=== PATIENT | female | born 1990 | race African-American/Black ===

== ENCOUNTER 2020-08-28 09:01 | Emergency (ER) | payer MEDICAID, SELFPAY ==
[2020-08-28 09:08] VITALS: BP 136/84; PULSE 92; RESP 20; TEMP 36.9; O2SAT 96; BMI 40.3
[2020-08-28 09:45] LABS: COVID-19 Test Negative (Negative); IDNOW Serial# 08D9AD1C
--- NOTE | 2020-08-28 09:58 | ED_ITS ---
HPI - URI/Sore Throat General Chief Complaint: Upper Respiratory Symptoms Stated Complaint: SORE THROAT Time Seen by Provider: 08/28/20 09:07 History of Present Illness HPI Narrative: Patient complains of sore throat, itchy throat for 2-3 days as well as a mild dry cough, no shortness of breath no fever no body aches no fatigue Related Data Previous Rx's Medication Instructions Recorded cetirizine 10 mg PO DAILY PRN #14 cap 08/28/20 Allergies Allergy/AdvReac Type Severity Reaction Status Date / Time No Known Allergies Allergy Unverified 01/05/20 17:18 Review of Systems Review of Systems: Positive for sore throat and cough Negatives are no fever no chills no dizziness no weakness no fainting no headache no neck pain no chest pain no shortness of breath no abdominal pain no nausea or vomiting no skin rash no dysuria no changes to bowel or bladder Yes a ll other systems are reviewed and are negative PMFSH Past Medical History Source: nursing notes reviewed Medical History (Updated 08/28/20 @ 10:14 by MIMI Lester) No known health problems Social History Social History Advance Directives: No Advance Directives Information Provided: No Patient : No Physical Exam Vital Signs: Vital Signs: Last Vital Signs Temp 98.4 F 08/28/20 09:08 Pulse 92 08/28/20 09:08 Resp 20 08/28/20 09:08 BP 136/84 08/28/20 09:08 Pulse Ox 96 08/28/20 09:08 Body Mass Index 40.3 General appearance is no acute distress The ears have clear canals with normal tympanic membrane The sinuses are nontender The pharynx is clear with no tonsillar exudate or swelling no redness no drooling no trismus, voice is normal Neck is supple without lymphadenopathy Chest is clear to auscultation bilateral Heart no murmur The abdomen soft nontender Skin no rash Course Course Course Narrative: Well-appearing patient with negative strep and COVID testing is discharged MDM - URI/Sore Throat Lab Data Labs: Lab Results 08/28/20 08/28/20 08/28/20 Range/Units 09:15 09:32 09:32 COVID-19 (KATHERINE) Negative (Negative) COVID-19 Clin Com See Note S. pyogenes GrpA CARL Cancelled Negative Discharge Plan Discharge Clinical Impression: Upper respiratory infection Qualifiers: URI type: unspecified viral URI Qualified Code(s): J06.9 - Acute upper respiratory infection, unspecified Patient Disposition: Home, Self-Care Additional Instructions: You may have of mild viral infection or possibly allergies so I wrote a prescription for cetirizine, allergy medicine COVID and rapid strep tests were negative Drink plenty of fluids Return any time if worse Prescriptions: New cetirizine 10 mg capsule 10 mg PO DAILY PRN (Reason: allergy symptoms) Qty: 14 RF: 0
[2020-08-28 10:02] LABS: IDNOW Serial# 08D9AD1C; Strep A Nucleic Acid Negative (Negative)
== END 2020-08-28 10:27 | disposition home or self-care (01) ==
PROVIDERS: Emergency Provider Emergency Medicine
DX: J06.9 Acute upper respiratory infection, unspecified (principal); Z20.822 Contact with and (suspected) exposure to COVID-19; J02.9 Acute pharyngitis, unspecified
CPT/HCPCS: 36415; 87635; 99283

== ENCOUNTER 2021-04-22 09:12 | Outpatient (REF) | payer MEDICAID, SELFPAY ==
[2021-04-22 09:58] LABS: COVID-19 Test Negative (Negative)
== END 2021-04-22 09:13 | disposition home or self-care (01) ==
LOC: HO.LAB 09:12
PROVIDERS: Visit Provider Internal Medicine
DX: Z20.822 Contact with and (suspected) exposure to COVID-19 (principal)
CPT/HCPCS: 36415; 87635; C9803

== ENCOUNTER 2021-04-29 09:23 | Outpatient (REF) | payer MEDICAID, SELFPAY ==
[2021-04-29 11:48] LABS: Binax Now Covid-19 Ag Positive (Negative)
[2021-04-29 11:49] LABS: Binax Internal Control QC Valid
== END 2021-04-29 09:24 | disposition home or self-care (01) ==
LOC: HO.LAB 09:23
PROVIDERS: Visit Provider Internal Medicine
DX: Z20.822 Contact with and (suspected) exposure to COVID-19 (principal)
CPT/HCPCS: 36415; C9803

== ENCOUNTER → 2021-05-16 11:57 | Outpatient (BNVA) | payer MEDICAID, SELFPAY | PROVIDERS: PCP General Practice; Referring Provider General Practice; Visit Provider Physician Assistant Surgical ==

== ENCOUNTER 2021-06-20 14:02 | Outpatient (REF) | payer MEDICAID, SELFPAY ==
--- NOTE | ~2021-06-20 | MM_ITS ---
EXAMINATION: MM SCREENING DIGITAL BREAST TOMOSYNTHESIS, BILATERAL CLINICAL INFORMATION: Screening. Asymptomatic. Family history breast cancer, mother. The lifetime risk of breast cancer based on the Tyrer-Cuzick Model is 27%. COMPARISON: Mammography: 11/18/2018 (baseline) TECHNIQUE: Digital breast tomosynthesis is performed in both the craniocaudal and mediolateral oblique views along with computer-aided detection (CAD). Synthesized 2D images are generated from the tomosynthesis. FINDINGS: There are scattered areas of fibroglandular density (ACR BI-RADS breast composition Category b). There are no significant masses, abnormal calcifications, or other abnormalities. There are 2 low right axillary tail nodes again seen on right MLO view. Neither breast shows architectural abnormality. The skin contours are smooth. No significant changes. MM/MM tomosynthesis screening BI IMPRESSION: No mammographic evidence of malignancy. ASSESSMENT: BI-RADS 2: Benign RECOMMENDATION: 1. Routine annual mammography screening. 2. The lifetime risk of breast cancer based on the Tyrer-Cuzick Model is 27%. Additional annual adjunct screening with breast MRI may be of benefit in women with a risk score of 20% or greater. This patient's information was entered into a reminder system with a target due date for their next mammogram.
== END 2021-06-20 14:03 | disposition home or self-care (01) ==
LOC: HO.MAMMO 14:02
PROVIDERS: PCP General Practice; Visit Provider General Practice
DX: Z12.31 Encounter for screening mammogram for malignant neoplasm of breast (principal)
CPT/HCPCS: 77063; 77067

== ENCOUNTER → 2021-06-21 08:17 | Outpatient (BNVA) | payer MEDICAID, SELFPAY | PROVIDERS: PCP General Practice; Visit Provider Surgery ==

== ENCOUNTER → 2021-06-28 14:53 | Outpatient (REF) | payer MEDICAID, SELFPAY ==
--- NOTE | ~2021-06-28 | XR_ITS ---
EXAMINATION: XR CHEST CLINICAL INFORMATION: Moderate to severe obesity due to excess calories. COMPARISON: None TECHNIQUE: 2 views of the chest were obtained. FINDINGS: No significant abnormality is noted involving the heart, lungs, mediastinum, bony thorax or soft tissues. XR/XR chest 2V IMPRESSION: Unremarkable chest examination.
--- NOTE | 2021-06-28 15:08 | ECG_ITS ---
Test Reason : E66.01 Blood Pressure : / mmHG Vent. Rate : 077 BPM Atrial Rate : 077 BPM P-R Int : 190 ms QRS Dur : 084 ms QT Int : 394 ms P-R-T Axes : 059 045 044 degrees QTc Int : 445 ms Normal sinus rhythm Normal ECG When compared with ECG of 17-SEP-2018 19:08, No significant change was found Referred By: Larry Godwin Electronically Signed By:GINA PERRY MD
== END ==
LOC: HO.CARD 14:53
PROVIDERS: Visit Provider Surgery
DX: Z01.818 Encounter for other preprocedural examination (principal); E66.01 Morbid (severe) obesity due to excess calories
CPT/HCPCS: 71046; 93005

== ENCOUNTER → 2021-07-02 12:30 | Outpatient (BNVA) | payer OTHER, SELFPAY | PROVIDERS: PCP General Practice; Visit Provider Counselor Mental Health | DX: E66.01 Morbid (severe) obesity due to excess calories (principal); F41.1 Generalized anxiety disorder | CPT/HCPCS: 90791 ==

== ENCOUNTER 2021-07-05 09:01 | Outpatient (REF) | payer MEDICAID, SELFPAY ==
[2021-07-05 09:30] LABS: MANUAL DIFF FLAG NO
[2021-07-05 09:56] LABS: Basophils Percent Auto 0.3 % (0-2); Eosinophils Absolute Auto 0.3 X10*3/uL (0.0-0.4); Eosinophils Percent Auto 4.5 % (0-4); Hematocrit 39.3 % (37.0-47.0); Hemoglobin 12.5 g/dl (12.0-16.0); Imm Gran Abs Auto 0.01 X10*3/uL (0.00-0.03); Imm Gran Pct Auto 0.2 % (0.0-0.4); Lymphocytes Absolute Auto 2.3 X10*3/uL (1.2-4.9); Lymphocytes Percent Auto 37.9 % (20-40); Mean Corpuscular HGB Conc 31.8 g/dl (31.0-35.0); Mean Corpuscular Hemoglobin 28.5 pg (27.0-33.0); Mean Corpuscular Volume 89.5 fL (80.0-98.0); Mean Platelet Volume 10.8 fL (9.4-12.3); Monocytes Absolute Auto 0.4 X10*3/uL (0.1-1.2); Monocytes Percent Auto 5.9 % (2-11); Neutrophils Absolute Auto 3.1 x10*3/uL (2.0-8.3); Neutrophils Percent Auto 51.2 % (45-73); Platelet Count 228 X10*3/uL (160-400); Red Blood Count 4.39 X10*6/uL (4.20-5.50); Red Cell Distribution Width 13.1 % (11.0-16.0)
[2021-07-05 10:03] LABS: Estimated Average Glucose 105 mg/dL; Hemoglobin A1c % 5.3 %
[2021-07-05 10:22] LABS: Alanine Aminotransferase 31 U/L (0-31); Albumin Level 3.9 g/dL (3.5-5.0); Alkaline Phosphatase 86 U/L (39-117); Anion Gap 14 (12-20); Aspartate Amino Transferase 25 U/L (5-31); Bilirubin Total 0.5 mg/dL (0.0-1.0); Blood Urea Nitrogen 10 mg/dL (9-16); Calcium 9.4 mg/dL (8.4-10.2); Carbon Dioxide 23 mmol/L (22-29); Chloride 104 mmol/L (96-108); Cholesterol 134 mg/dL; Estimated Glomerular Filt Rate > 60; Glucose Random 82 mg/dL (60-115); HDL Cholesterol 27 mg/dL; Iron 36 mcg/dL (30-160); LDL Cholesterol Calculated 92 mg/dl; Percent Iron Saturation 11 % (15-50); Potassium 4.3 mmol/L (3.3-5.1); Sodium 137 mmol/L (135-145); Total Iron Binding Capacity 329 mcg/dL (228-428); Total Protein 7.4 g/dL (6.5-8.0); Triglycerides 75 mg/dL; Unsaturated Iron Binding 293 ug/dL
[2021-07-05 10:44] LABS: Insulin 16 uU/mL (2-29); TSH reflex Free T4 0.94 uIU/mL (0.32-4.0); Vitamin D 25-OH Total 11.8 ng/mL (>30)
[2021-07-05 10:56] LABS: Folate 16.7 ng/mL (> or = 4.0); Vitamin B12 580 pg/mL (200-900)
[2021-07-05 11:22] LABS: Ferritin 52 ng/mL (10-122)
[2021-07-08 16:12] LABS: Calcium (PTHI) 9.3 mg/dL (8.6-10.2); PTHI 59 pg/mL (16-77)
[2021-07-10 03:21] LABS: Zinc 73 mcg/dL (60-130)
[2021-07-11 18:57] LABS: Vitamin A 22 mcg/dL (38-98); Vitamin B1 7 nmol/L (8-30)
== END 2021-07-05 09:02 | disposition home or self-care (01) ==
LOC: HO.LAB 09:01
PROVIDERS: Visit Provider Surgery
DX: E66.01 Morbid (severe) obesity due to excess calories (principal)
CPT/HCPCS: 36415; 80053; 80061; 82306; 82607; 82728; 82746; 83036; 83525; 83540; 83970; 84425; 84443; 84590; 84630; 85025; 86140

== ENCOUNTER → 2021-07-18 08:01 | Outpatient (BNVA) | payer MEDICAID, SELFPAY | PROVIDERS: PCP General Practice; Visit Provider Dietitian, Registered | DX: E66.01 Morbid (severe) obesity due to excess calories (principal) | CPT/HCPCS: 97802 ==

== ENCOUNTER → 2021-07-24 08:23 | Outpatient (BNVA) | payer MEDICAID, SELFPAY | PROVIDERS: PCP General Practice; Visit Provider Surgery | DX: Z13.89 Encounter for screening for other disorder (principal) ==

== ENCOUNTER → 2021-07-25 12:09 | Outpatient (BNVA) | payer MEDICAID, SELFPAY | PROVIDERS: PCP General Practice; Referring Provider General Practice; Visit Provider Physician Assistant | DX: E66.01 Morbid (severe) obesity due to excess calories (principal); Z11.0 Encounter for screening for intestinal infectious diseases | CPT/HCPCS: 99211 ==

== ENCOUNTER 2021-07-25 14:07 | Outpatient (REF) | payer MEDICAID, SELFPAY ==
[2021-07-28 11:45] LABS: H Pylori Breath Test Negative (Negative)
== END 2021-07-25 14:08 | disposition home or self-care (01) ==
LOC: HO.LNP 14:07
PROVIDERS: Visit Provider Surgery
DX: E66.01 Morbid (severe) obesity due to excess calories (principal)
CPT/HCPCS: 83013

== ENCOUNTER → 2021-07-31 08:13 | Outpatient (BNVA) | payer MEDICAID, SELFPAY | PROVIDERS: PCP General Practice; Referring Provider Surgery; Visit Provider Dietitian, Registered | DX: E66.01 Morbid (severe) obesity due to excess calories (principal) | CPT/HCPCS: 97803 ==

== ENCOUNTER 2021-08-08 08:47 | Outpatient (REF) | payer MEDICAID, SELFPAY ==
--- NOTE | ~2021-08-08 | US_ITS ---
EXAMINATION: US COMPLETE ABDOMEN WITH LIVER ELASTOGRAPHY CLINICAL INFORMATION: Morbid obesity due to excess calories. COMPARISON: None. TECHNIQUE: Real-time imaging of the abdominal viscera. Noninvasive ultrasound liver fibrosis assessment is performed using Janet ElastPQ point quantification shear wave elastography (2D-SWE) with a C5-2 MHz transducer. Multiple elastography samples are obtained. FINDINGS: PANCREAS: Normal. The visualized pancreatic head and body are normal in appearance. The remainder of the pancreas is obscured from visualization by the overlying bowel gas. ABDOMINAL AORTA: The proximal, middle, and distal aortic segments are normal in caliber. INFERIOR VENA CAVA: Visualized portions are normal. LIVER: Normal. The liver demonstrates normal size, contour and echogenicity. No focal lesion or intrahepatic biliary duct dilatation. The right lobe measures 12.3 cm in length. The left lobe measures 11.0 cm in length. Portal flow is towards the liver (hepatopetal). Shear wave liver elastography median stiffness is 2.1 m/s (reference: normal median stiffness is 1.3 m/s or less). IQR/median stiffness to assess sampling precision is 0.28 (reference: good quality data set is IQR/median stiffness of 0.15 or less). GALLBLADDER: Normal. The gallbladder is physiologically distended without evidence of stones, sludge, polyps, wall thickening or pericholecystic fluid. COMMON BILE DUCT: Normal in caliber measuring 0.3 cm in diameter. RIGHT KIDNEY: Normal. No hydronephrosis. No renal calculi or focal parenchymal lesions. The kidney measures 10.5 cm in maximum dimension. LEFT KIDNEY: Normal. No hydronephrosis. No renal calculi or focal parenchymal lesions. The kidney measures 11.0 cm in maximum dimension. SPLEEN: Normal. The spleen measures 10.4 cm in maximum dimension. FREE FLUID: None. US/US abdomen comp w elastography IMPRESSION: 1. Normal grayscale appearance of the liver. No focal liver lesions. 2. Liver elastography: Although measurements are suggestive of compensated advanced chronic liver disease, there is statistical variability of the sampling which decreases accuracy. REFERENCE: Society of Radiologists in Ultrasound Liver Stiffness Thresholds (2019): LIVER STIFFNESS THRESHOLDS: *Liver Stiffness equal or less than 1.3 m/s: High probability of being normal. *Liver Stiffness less than 1.7 m/s: In the absence of other known clinical signs, rules out compensated advanced chronic liver disease. *Liver Stiffness 1.7-2.1 m/s: Suggestive of compensated advanced chronic liver disease but need further test for confirmation. *Liver Stiffness over 2.1 m/s: Rules in compensated advanced chronic liver disease. *Liver Stiffness over 2.4 m/s: Suggestive of clinically significant portal hypertension. QUALITY OF DATA SET: *IQR/Median value equal or less than 0.15 implies a quality data set. *IQR/Median value over 0.15 implies a poor quality data set. SIGNIFICANT CHANGE FROM PRIOR EXAM: Significant change if liver stiffness measurement is 10% or greater from prior exam. OTHER CONSIDERATIONS: The stage of liver fibrosis may be overestimated in the setting of acute hepatitis, liver inflammation, elevated liver function tests, hepatic vascular congestion, obstructive cholestasis, non-fasting state, and infiltrative diseases such as amyloidosis and lymphoma. In some patients with NAFLD, the liver stiffness thresholds for compensated advanced chronic liver disease may be lower. In causes other than viral hepatitis and NAFLD, liver stiffness thresholds are not well established.
--- NOTE | ~2021-08-08 | FL_ITS ---
EXAMINATION: XR FLUOROSCOPY UPPER GI WITH AIR CLINICAL INFORMATION: Morbid obesity. COMPARISON: None TECHNIQUE: Air-contrast upper GI examination. FINDINGS: There is normal apposition of the vocal cords while saying E. There is normal elevation of the soft palate while saying candy. Patient swallowed thin and thick barium and one-half inch diameter barium tablet without difficulty. There is no evidence of nasopharyngeal reflux or tracheal aspiration. No cricopharyngeal hypertrophy or Zenker's diverticulum. Esophagus demonstrated normal motility without persistent stricture or mucosal abnormality. No hiatal hernia was seen. No gastroesophageal reflux was elicited including with water siphon test. The stomach demonstrates normal distensibility without abnormal mass or ulceration. There was no delay in gastric emptying. The duodenal bulb and sweep appear unremarkable. FLUOROSCOPY TIME: 1.4 minutes. DOSE AREA PRODUCT: 11.061 Gy-cm2 FL/FL upper GI w air IMPRESSION: Normal air-contrast upper GI examination.
== END 2021-08-08 08:48 | disposition home or self-care (01) ==
LOC: HO.US 08:47
PROVIDERS: Visit Provider Surgery
DX: E66.01 Morbid (severe) obesity due to excess calories (principal)
CPT/HCPCS: 74246; 76705; 76981

== ENCOUNTER → 2021-08-16 08:15 | Outpatient (BNVA) | payer MEDICAID, SELFPAY | PROVIDERS: PCP General Practice; Visit Provider Surgery | DX: Z13.89 Encounter for screening for other disorder (principal) ==

== ENCOUNTER → 2021-08-26 08:31 | Outpatient (BNVA) | payer MEDICAID, SELFPAY | PROVIDERS: PCP General Practice; Referring Provider General Practice; Visit Provider Physician Assistant | DX: Z13.89 Encounter for screening for other disorder (principal) ==

== ENCOUNTER 2021-08-29 08:31 | Inpatient (IN) | payer MEDICAID, SELFPAY ==
[2021-08-21 11:28] VITALS: BMI 41.4
[2021-08-22 08:29] LABS: MANUAL DIFF FLAG NO
[2021-08-22 08:58] LABS: Basophils Percent Auto 0.7 % (0-2); Eosinophils Absolute Auto 0.2 X10*3/uL (0.0-0.4); Eosinophils Percent Auto 3.8 % (0-4); Hematocrit 40.1 % (37.0-47.0); Hemoglobin 12.8 g/dl (12.0-16.0); INTERNATIONAL NORM RATIO 1.2 (0.9-1.1); Imm Gran Abs Auto 0.01 X10*3/uL (0.00-0.03); Imm Gran Pct Auto 0.2 % (0.0-0.4); Lymphocytes Absolute Auto 2.3 X10*3/uL (1.2-4.9); Lymphocytes Percent Auto 38.2 % (20-40); Mean Corpuscular HGB Conc 31.9 g/dl (31.0-35.0); Mean Corpuscular Volume 90.7 fL (80.0-98.0); Mean Platelet Volume 10.3 fL (9.4-12.3); Monocytes Absolute Auto 0.4 X10*3/uL (0.1-1.2); Monocytes Percent Auto 6.3 % (2-11); Neutrophils Absolute Auto 3.1 x10*3/uL (2.0-8.3); Neutrophils Percent Auto 50.8 % (45-73); Platelet Count 269 X10*3/uL (160-400); Prothrombin Time 13.7 SEC (9.9-13.0); Red Blood Count 4.42 X10*6/uL (4.20-5.50); Red Cell Distribution Width 13.2 % (11.0-16.0); White Blood Count 6.1 X10*3/uL (4.8-10.8)
[2021-08-22 09:00] LABS: Partial Thromboplastin Time 37.3 SEC (24.1-38.0)
[2021-08-22 09:32] LABS: Estimated Average Glucose 103 mg/dL; Hemoglobin A1c % 5.2 %
[2021-08-22 09:33] LABS: Alanine Aminotransferase 13 U/L (0-31); Albumin Level 3.8 g/dL (3.5-5.0); Alkaline Phosphatase 94 U/L (39-117); Anion Gap 12 (12-20); Aspartate Amino Transferase 15 U/L (5-31); Bilirubin Total 0.8 mg/dL (0.0-1.0); Blood Urea Nitrogen 8 mg/dL (9-16); C Reactive Protein 2.42 mg/dL (< or = 0.50); Calcium 9.6 mg/dL (8.4-10.2); Carbon Dioxide 24 mmol/L (22-29); Chloride 105 mmol/L (96-108); Cholesterol 150 mg/dL; Creatinine Clr Calc Pharmacy 151.7; Estimated Glomerular Filt Rate > 60; Glucose Random 83 mg/dL (60-115); HDL Cholesterol 25 mg/dL; LDL Cholesterol Calculated 109 mg/dl; Potassium 4.1 mmol/L (3.3-5.1); Sodium 137 mmol/L (135-145); Total Protein 7.1 g/dL (6.5-8.0); Triglycerides 84 mg/dL
[2021-08-22 09:57] LABS: TSH reflex Free T4 2.62 uIU/mL (0.32-4.0)
[2021-08-23 11:05] LABS: Insulin 16 uU/mL (2-29)
--- NOTE | 2021-08-23 21:53 | MHC.SHP ---
Pre-Procedural Eval Section A Date of Service: 08/23/21 The patient is an INPATIENT: Yes The History & Physical has been completed within 30 days and I have reviewed it.: No Section B Chief Complaint: obesity Relevant Family History (Specify if Yes): No Relevant Social History: None Present Medications: None Medical History: No relevant PMH History of Previous Operations: No relevant previous surgery Allergies: Allergies Allergy/AdvReac Type Severity Reaction Status Date / Time No Known Allergies Allergy Verified 08/16/21 12:57 Review of Systems Sugical H&P ROS: Negative: Constitution, Cardiovascular, Respiratory, Neurological, Psychiatric, Hem-Onc, Allergic/Immunologic, Gastrointestinal, Genitourinary, Musculoskeletal, Integumentary, Endocrine and Eyes/Ears/Nose/Throat Exam Surgical H&P Exam: Normal: HEENT, Normal: Heart, Normal: Lungs, Normal: Extremities, Normal: Abdomen, Normal: Skin and Normal: Neurological Plan Diagnosis/Plan: Unchanged I have reviewed the history and physical and performed a pertinent physical examination on my patient. No changes have occurred unless specified.
--- NOTE | 2021-08-28 09:13 | HO.ANESPROP2 ---
Documented by User: Zena Millan NP 08/28/21 09:15 HPI - Anesthesia Eval Consult details Narrative: 31yo F for Gastrectomy Sleeve,EGD,poss diaphragmatic hernia,poss ventral hernia,poss open, PMFSH Active Problems Active Problems: All Active Problems (Updated 08/21/21 @ 11:27 by Katherine Alvarenga RN) Vitamin D deficiency (Acute) Generalized anxiety disorder (Acute) Vitamin B1 deficiency (Acute) Vitamin A deficiency (Acute) Knee pain (Acute) Anxiety (Acute) Morbid obesity (Acute) Past Medical History Medical History (Updated 08/29/21 @ 10:01 by Larry Godwin MD) Anxiety COVID-19 vaccine series completed History of COVID-19 Knee pain Liver fibrosis Morbid obesity Family History Family History (Updated 06/18/21 @ 11:30 by Radha Garrison LPN) Mother No problems noted. Father No problems noted. Brother Migraines Brother Asthma Surgical History Surgical History (Updated 06/18/21 @ 11:31 by Radha Garrison LPN) No pertinent past surgical history Social History Social History (Updated 06/18/21 @ 11:30 by Radha Garrison LPN) Are you a primary childcare administrator to a significant other at home: No Do you presently have visiting nurse or other home services: No Alcohol intake: current Alcohol intake frequency: holidays/special occasions only Patient Tobacco Use Status: Never used Tobacco Use of substances other than those prescribed or required for medical reasons: Yes Substance Use Type: Marijuana Substance Use Type Other:: advised to hold pre-op Substance Use Frequency: Daily Have you been hit, kicked, punched, or otherwise hurt by someone within the past year? If so, by whom?: No Are you DNR?: No Advance Directives: No Advance Directives Information Provided: Yes (brochure mailed) Advance Directives on File: No Recently lost weight without trying: No Eating poorly because of decreased appetite: No Nutrition Risks: No Nutritional Risk Patient : No FDLMP: 08/10/21 : No Poor oral hygiene: No Meds Allergies Allergy/AdvReac Type Severity Reaction Status Date / Time No Known Allergies Allergy Verified 08/16/21 12:57 Exam Exam Date and Time: August 28, 2021 0913 Height,Weight and Vital Signs: Height 5 ft 6 in Weight 116.573 kg Pertinent Lab Results Pertinent Lab Results: Laboratory Tests 08/22/21 08/22/21 08/22/21 08:28 08:28 08:28 WBC 6.1 RBC 4.42 Hgb 12.8 Hct 40.1 MCV 90.7 MCH 29.0 MCHC 31.9 RDW 13.2 Plt Count 269 MPV 10.3 Immature Gran % (Auto) 0.2 Neut % (Auto) 50.8 Lymph % (Auto) 38.2 [place] % (Auto) 6.3 Eos % (Auto) 3.8 Baso % (Auto) 0.7 Lymph # (Auto) 2.3 [place] # (Auto) 0.4 Eos # (Auto) 0.2 Baso # (Auto) 0.0 Abs Immat Gran (auto) 0.01 Absolute Neuts (auto) 3.1 Absolute Nucleated RBC 0.000 Nucleated RBC % (auto) 0.0 PT 13.7 H INR 1.2 H APTT 37.3 Sodium 137 Potassium 4.1 Chloride 105 Carbon Dioxide 24 Anion Gap 12 BUN 8 L Creatinine 0.71 Estim Creat Clear Calc 151.7 Estimated GFR > 60 Random Glucose 83 Estimat Average Glucose Hemoglobin A1c % Insulin Level 16 Calcium 9.6 Total Bilirubin 0.8 AST 15 ALT 13 Alkaline Phosphatase 94 C-Reactive Protein 2.42 H Total Protein 7.1 Albumin 3.8 Triglycerides 84 Cholesterol 150 LDL Cholesterol, Calc 109 HDL Cholesterol 25 TSH 2.62 Blood Type Antibody Screen 08/22/21 08/22/21 08:28 08:30 WBC RBC Hgb Hct MCV MCH MCHC RDW Plt Count MPV Immature Gran % (Auto) Neut % (Auto) Lymph % (Auto) [place] % (Auto) Eos % (Auto) Baso % (Auto) Lymph # (Auto) [place] # (Auto) Eos # (Auto) Baso # (Auto) Abs Immat Gran (auto) Absolute Neuts (auto) Absolute Nucleated RBC Nucleated RBC % (auto) PT INR APTT Sodium Potassium Chloride Carbon Dioxide Anion Gap BUN Creatinine Estim Creat Clear Calc Estimated GFR Random Glucose Estimat Average Glucose 103 Hemoglobin A1c % 5.2 Insulin Level Calcium Total Bilirubin AST ALT Alkaline Phosphatase C-Reactive Protein Total Protein Albumin Triglycerides Cholesterol LDL Cholesterol, Calc HDL Cholesterol TSH Blood Type B Positive Antibody Screen NEGATIVE Narrative Narrative: EKG 06/2021 Vent. Rate : 077 BPM ? ? Atrial Rate : 077 BPM ?? P-R Int : 190 ms? QRS Dur : 084 ms ? ? QT Int : 394 ms ? ? ? P-R-T Axes : 059 045 044 degrees ?? QTc Int : 445 ms ? Normal sinus rhythm Normal ECG When compared with ECG of 17-SEP-2018 19:08, No significant change was found Assessment and Plan Assessment Anesthesia Assessment: Chart Reviewed Documented by User: Derek Kumar MD 08/29/21 10:58 [facility] Past Medical History Medical History (Updated 08/29/21 @ 10:01 by Larry Godwin MD) Anxiety COVID-19 vaccine series completed History of COVID-19 Knee pain Liver fibrosis Morbid obesity Family History Family History (Updated 06/18/21 @ 11:30 by Radha Garrison LPN) Mother No problems noted. Father No problems noted. Brother Migraines Brother Asthma Family history of problems with anesthesia: No Surgical History Surgical History (Updated 06/18/21 @ 11:31 by Radha Garrison LPN) No pertinent past surgical history History of Problems with Anesthesia: No Social History Social History (Updated 06/18/21 @ 11:30 by Radha Garrison LPN) Are you a primary childcare administrator to a significant other at home: No Do you presently have visiting nurse or other home services: No Alcohol intake: current Alcohol intake frequency: holidays/special occasions only Patient Tobacco Use Status: Never used Tobacco Use of substances other than those prescribed or required for medical reasons: Yes Substance Use Type: Marijuana Substance Use Type Other:: advised to hold pre-op Substance Use Frequency: Daily Have you been hit, kicked, punched, or otherwise hurt by someone within the past year? If so, by whom?: No Are you DNR?: No Advance Directives: No Advance Directives Information Provided: Yes (brochure mailed) Advance Directives on File: No Recently lost weight without trying: No Eating poorly because of decreased appetite: No Nutrition Risks: No Nutritional Risk Patient : No FDLMP: 08/10/21 : No Poor oral hygiene: No Meds Allergies Allergy/AdvReac Type Severity Reaction Status Date / Time No Known Allergies Allergy Verified 08/16/21 12:57 Exam Airway Mallampati Class: I TM Dist: >3cm Neck ROM: Full Loose/Missing/Broken Teeth: No Assessment and Plan Assessment Anesthesia Assessment: Anesthesia Plan Discussed Final Anesthetic Review Family History of Problems with Anesthesia: No History of Problems with Anesthesia: No NPO: Yes ASA Class: III Final Preanesthetic Review: No Changes in Pt Med Stat, Meds/Allgs Chart Reviewed, Consent Obtained/Reviewed and Anes Risks/Benef Reviewed Patient Risk: Intermediate Procedure Risk: Intermediate Anesthetic Plan Anesthetic Plan: GA Disposition: Standard PACU
[2021-08-28 14:24] LABS: COVID-19 Test Negative (Negative)
[2021-08-29] VITALS (13 sets, daily range): BP systolic 115–144; BP diastolic 73–96; PULSE 53–90; RESP 14–26; TEMP 36.3–36.8; O2SAT 97–100
--- NOTE | 2021-08-29 08:48 | PHA.MEDREC ---
Pharmacy Consult ? Medication Reconciliation Pharmacy has reviewed the medication reconciliation.
[2021-08-29 09:03] LABS: UPreg QC Valid YES; Urine Pregnancy NEGATIVE (NEGATIVE)
[2021-08-29] MEDS: Lactated Ringers 1,000 ML 999 ML IV (09:17)
[2021-08-29] MEDS: Lactated Ringers 1,000 ML 100 ML IVCONT ×3 (09:17→22:45)
--- NOTE | 2021-08-29 09:57 | P.BOP_ITS ---
Brief Operative Note Date of Service: 08/29/21 Pre-op diagnosis: Morbid obersity with comorbidities (see below) Post-op diagnosis: same Procedure: INITIAL PATIENT BMI ON PRESENTATION AT OUR OFFICE: 44.6 kg/m2 LAST BMI BEFORE SURGERY: 42.2 kg/m2 COMORBIDITIES: anxiety, liver fibrosis ?The patient presented to the Weight Management Program with significant obesity that was negatively impacting the patient's comorbidities as listed above.? The program is a phased program with a special focus on preoperative medical weight management to promote substantial weight loss and prepare the patients for the second phase of the program: bariatric surgery. The patient participated in an intensive weekly lifestyle ?intervention and exercise program during which the patient ?has lost between the initial office visit and the last preoperative v isit 16.6lbs, or 6.01% of initial actual body weight. It was deemed appropriate for the patient to now have bariatric surgery. In light of the current Covid-19 pandemic and the well documented strong association of obesity and increased risk of worse outcomes if infected with Covid-19 (REFERENCES: https://pubmed.ncbi.nlm.nih.gov/16064862/ ,? https://pubmed.ncbi.nlm. nih.gov/77858078/ ), any delay in undergoing bariatric surgery may lead to the patient's worsening health condition and increased?risk of more severe Covid-19 disease if infected. In addition a recent?study from [facility] published in [facility] on 04/15/2021 ([email or web address]) found that, among patients with obesity, substantial weight loss achieved with surgery was associated with improved outcomes of COVID-19 infection. The findings suggest that obesity can be a modifiable risk factor for the severity of COVID-19 infection. In addition, the patient met the BMI-criteria for bariatric surgery based on the BMI on initial presentation. The patient should not be penalized for achieving such weight loss because ?it is not sustainable long-term without surgical intervention and it was achieved in preparation for bariatric surgery ?under my direction and based on my published research ([email or web address]: [email or web address]).[email or web address] and? https://www.soard.org/article/[email or web address](54)35155-X/pdf ) ?that a 10% preoperative weight loss improves long-term weight loss after surgery and reduces perioperative complications.? Insurance carriers such as [facility] have endorsed my recommendations ?and have included in their policies criteria to include a 10% preoperative weight loss requirement. PROCEDURE: Esophago-gastroscopy, laparoscopic sleeve gastrectomy and laparoscopic gastropexy INDICATIONS: This is a 31 year-old female who was electively scheduled for laparoscopic, possibly open sleeve gastrectomy. The risks and complications of the procedure were discussed with the patient in advance, particularly the possibility of ; pulmonary embolism; staple line leak; bleeding; GERD; cardiac, pulmonary, or renal complications; as well as long-term problems such as insufficient weight loss, vitamin deficiency, strictures, or ulcers. The patient understood all the risks, and was in agreement to proceed with surgery. DESCRIPTION OF PROCEDURE: After informed consent was obtained from the patient, the patient was given preoperative antibiotics, and was transferred to the operating room. After successful induction of general anesthesia, pneumatic compression devices were placed on both lower extremities. An upper endoscopy was performed next. The oropharynx and esophagus appeared to be within normal limits. There was no diaphragmatic hernia present consistent with the findings of the preoperative upper GI. The stomach was entered. Then after all fluid and air were suctioned and the stomach was fully decompressed, the scope was withdrawn and secured in the mid esophagus. The patient was then prepped and draped in the usual sterile manner, and ab dominal access was established at the right upper quadrant with the Cliff technique. A 12 mm blunt port was inserted, and the abdomen was insufflated with CO2 to a pressure of 15 mmHg. Under direct visualization, additional ports were placed, specifically two 5 mm Versi-step ports to the left upper quadrant, and a 5 mm Versi-Step port to the right upper quadrant. 1% lidocaine plain was used to infiltrate all port sites as well as all fascia defects. Using the EndoClose suture passer device, I placed a #1 Polysorb tie across the falciform ligament in order to retract it up against the abdominal wall and prevent injury of the ligament with our instruments during the procedure. Following that, the patient was placed in a steep reverse Trendelenburg position. An additional 5 mm port was placed to the right flank for the Mediflex retractor that was used to retract the left lobe of the liver. The gastro-esophageal fat pad was opened with the ultrasonic device (Thunderbeat, Olympus) and the anterior esophagus and hiatus were exposed. The angle of His was opened with the ultrasonic device the fundus of the stomach from any diaphragmatic and splenic attachments. I then opened the gastrocolic ligament between the transverse colon and the greater curvature of the stomach with the ultrasonic device to enter the lesser sac and facilitate the ligation of the short gastric vessels. I started at a mid-point along the greater curvature and using the Thunderbeat, all short gastric vessels were divided all the way to the angle of His until the left ame was completely dissected at its entirety. I then divided the gastro-colic ligament distally to a distance of about 3-4 cm proximal to the pylorus. The stomach was then divided transversely with one Endo FRANCISCO JAVIER-45 purple, one FRANCISCO JAVIER- 45 orange loads and three FRANCISCO JAVIER-6s0 articulating orange loads using the AEON stapler and loads. Every effort was made that the gastric sleeve had a tubular shape and an even caliber throughout. Once the sleeve resection was completed, the staple line of the gastric sleeve was reinforced with Hemoclips. The resected stomach was retrieved without difficulty from the Cliff port. A gastropexy was then performed in order to prevent postoperative GERD and partial gastric volvulus. Several interrupted 2.0 Surgidac sutures were placed between the sleeve's staple line and the previously divided greater omentum and gastro-colic ligament using the Endo-Stitch device. ?An upper endoscopy was performed. There was no narrowing at the GE junction. The scope was easily advanced all the way to the pylorus which was clearly visualized. There was no narrowing anywhere and the sleeve's caliber was even throughout. The sleeve's staple line was inspected and there was no evidence of ischemia, bleeding or dehiscence. At that point the gastroscope was withdrawn from the patient?s mouth while we were decompressing the bowel and the stomach from any remaining air. I looked into the lesser sac to see how the sleeve was situating and it was situating well. There was no bleeding from the staple line, spleen, or short gastric vessels. The Mediflex retractor was removed, and the undersurface of the liver was inspected and there was no bleeding. The patient was placed in supine position. I closed the fascial defect of the 12 mm port site with a figure of eight #1 Polysorb suture. Then 100 cc 0.25 % Marcaine plain with 10 mg of Dexamethasone were used to infiltrate the fascial closure as well as all skin incisions. At this point, the abdomen was deflated, all ports were removed under direct vi selwyn, and no bleeding was noted from any of the port sites. The skin incisions were irrigated with saline and were closed with 4-0 absorbable monofilament sutures. Steri-Strips and OpSites were used to cover all incisions. The patient was extubated and was transferred in stable condition to the recovery room for further care. I was present and performed all mckeon parts of the procedure. Mr. Sparrow was the assistant professor of chemistry. There were no residents to assist with this case. Cedric Godwin MD, PhD, FACS Surgeon: Larry Godwin MD Anesthesia: GETA, local and other (TAP block & 5ml Zynrelef) Was an Reproduction Technician used for this Procedure?: No Reproduction Technician: Frederick Sparrow Estimated blood loss (mL): 20 IV fluids (mL): 3,000 Urine output (mL): 0 (No Ricardo to record) Pathology: other (Stomach) Condition: stable Disposition: PACU
--- NOTE | 2021-08-29 09:59 | PM.PNGS ---
Subjective Subjective Date of Service: 08/30/21 Interval history: Patient has mild incisional pain, but was able to ambulate and use the incentive spirometer. She is tolerating phase 1 bariatric diet Physical Exam Vital Signs: Vital Signs: Last Vital Signs Temp 97.8 F 08/29/21 08:46 Pulse 75 08/29/21 08:46 Resp 18 08/29/21 08:46 BP 125/90 H 08/29/21 08:46 Pulse Ox 98 08/29/21 08:46 BMI result Body Mass Index 41.4 GI: Inspection: Yes normal to inspection, Yes incision (clean, dry and intact) and Yes obesity Extrem: Right lower extremity: normal to inspection (no calf tenderness) Left lower extremity: normal to inspection (no calf tenderness) Objective Data Active Medications Lactated Ringer's (Lr) 1,000 mls @ 100 mls/hr IVCONT .Q10H [facility] Last Admin: 08/29/21 09:17 Dose: 100 mls/hr Documented by: WHIT Lactated Ringer's (Lr) 1,000 mls @ 999 mls/hr IV .Q1H1M [facility] Stop: 08/29/21 10:45 Last Admin: 08/29/21 09:17 Dose: 999 mls/hr Documented by: WHIT Labs CBC & Chem 7: 08/30/21 06:12 08/30/21 06:12 Labs: Laboratory Results - last 24 hr 08/28/21 08/29/21 13:40 08:32 Urine Test NEGATIVE COVID-19 (KATHERINE) Negative COVID-19 Clin Com See Note Procedures Date of Service Date of Service: 08/30/21 Progress Note: A&P Assessment and plan (1) Morbid obesity: Status: Acute Assessment and Plan: s/p laparoscopic sleeve gastrectomy, lysis of adhesions repair of diaphragmatic hernia, and gastropexy Doing well Check am labs. If OK, will discharge home (2) Anxiety: Status: Acute (3) Knee pain: Status: Acute (4) Liver fibrosis: Status: Acute (5) Status post sleeve gastrectomy: Status: Acute Time Spent With Patient Time: Total time spent is greater than 50% in coordination of care (as documented) at patient's floor/unit and/or counseling patient: Quality Stroke Does the patient have a stroke diagnosis?: No VTE Prior VTE?: No VTE Risk Level:: Surgical - moderate VTE Device Contraindication: N/A - Device Ordered VTE Drug Contraindication: Treatment Not Indicated
--- NOTE | 2021-08-29 12:48 | P.DS_ITS ---
DS: Providers Provider Date of Service: 08/30/21 Date of admission: 08/29/21 08:31 Primary care physician: Unknown Physician DS: Diagnosis Discharge Diagnosis (1) Morbid obesity: Status: Acute (2) Anxiety: Status: Acute (3) Knee pain: Status: Acute (4) Liver fibrosis: Status: Acute (5) Status post sleeve gastrectomy: Status: Acute DS: Summary Hospital Course Hospital Course: ADMITTING DIAGNOSIS: morbid obesity, anxiety ? DISCHARGE DIAGNOSIS: same, s/p laparoscopic sleeve gastrectomy ? PAST SURGICAL HISTORY: none ? PROCEDURE: upper endoscopy, laparoscopic sleeve gastrectomy ? DISCHARGE SUMMARY: ? History of Present Illness: ? The patient is a?31 year-old woman with a BMI of?44.6 kg/m2 and associated co- morbidities as described above. The patient had extensive work-up,lost?15.2 lbs preoperatively and was electively scheduled for laparoscopic, possible open sleeve gastrectomy and gastropexy. Risks and complications of the surgery were discussed with the patient in advance, particularly the possibility of , pulmonary embolism, anastomotic leak, bleeding, bowel injury, GERD, cardiac, renal or pulmonary complications. The patient understood all the risks and was in agreement with the surgical plan. ? Hospital Course: ? The patient underwent an uneventful laparoscopic sleeve gastrectomy with gastropexy on the day of admission. Postoperatively, the patient was transferred to the surgical floor. The patient received IV Acetaminophen and IV dilaudid for pain control. Patient was started on bariatric phase 1 diet POD #0. On postoperative day one, the patient was feeling well without nausea, vomiting, fevers, or tachycardia. The patient had some mild incisional pain and the abdomen was soft. ? On the morning of postoperative day one, the patient was continued on 1 ounce of water or ice every half hour. During the day, the patient did fairly well, hav ing some incisional pain, but able to ambulate adequately and to tolerate liquids well. ? Since the patient is doing well, we decided that the patient was ready to be discharged. The patient was given instructions to follow-up with me next week and to call my office for any fever over 101, persistent abdominal pain, nausea, vomiting, GERD, symptoms of DVT such as calf tenderness, or leg swelling, or pulmonary embolism such as chest pain or shortness of breath. The patient was also instructed to drink 40-60 ounces of liquids per day using the 1-ounce cups. The patient had been given prescriptions for Tylenol for pain, Zofran prn for nausea, and pantoprazole and carafate previously. The patient was encouraged to ambulate and use the incentive spirometer. The patient was allowed to shower, but no baths, and encouraged to stay active at home. All of these instructions were given to the patient personally. All questions were answered and the patient understood all instructions, the instructions were also given to the patient in print. Time Spent with Patient Time attestation: Total time spent providing and/or coordinating discharge services: Discharge coordination time: Less than 30 minutes Quality: Safe Use of Opioids Does Pt have an Active Cancer Diagnosis on the Problem List?: No Quality: Stroke Does the patient have a stroke diagnosis?: No Physical Exam Vital Signs: Vital Signs: Last Vital Signs Temp 97.8 F 08/29/21 08:46 Pulse 75 08/29/21 08:46 Resp 18 08/29/21 08:46 BP 125/90 H 08/29/21 08:46 Pulse Ox 98 08/29/21 08:46 BMI result Body Mass Index 41.4 DS: Data Data Completed and Pending Pending studies at discharge: Pending at discharge 08/29/21 12:05 Surgical [PTH] Routine Labs on day of discharge: Laboratory Results - last 24 hr 08/28/21 08/29/21 13:40 08:32 Urine Test NEGATIVE COVID-19 ([facility]ATHERINE) Negative COVID-19 Clin Com See Note Discharge Plan Discharge Patient Disposition: Home, Self-Care Discharge Diagnosis: s/p laparoscopic sleeve gastrectomy Referrals: Physician,Unknown J [Primary Care Provider] - 1 Week Discharge Medications: Continued pantoprazole 40 mg tablet,delayed release (DR/EC) 40 mg PO DAILY Qty: 30 2RF sucralfate 100 mg/mL suspension 10 ml PO BID Qty: 400 2RF ondansetron HCl 4 mg tablet 4 mg PO Q12H Qty: 20 0RF Discontinued cholecalciferol (vitamin D3) 125 mcg (5,000 unit) capsule 125 mcg PO DAILY Qty: 30 2RF thiamine HCl (vitamin B1) 100 mg tablet 100 mg PO DAILY Qty: 30 2RF vitamin A palmitate 10,000 unit capsule 10,000 unit PO .COMPLEX Qty: 30 2RF Rx Instructions: 10,000 units PO one per day; polyethylene glycol 3350 [Miralax] 17 gram powder in packet 17 g PO DAILY Qty: 14 0RF Rx Instructions: Mix each packet with 8oz of water and do 7 packets on 08/27/21 and another 7 packets on 08/28/2021 Discharge Orders: Discharge Order (Routine); Ordered 08/30/21 Ordered By: Larry Godwin Diet: other Activity on Discharge: No heavy lifting Stand Alone Forms: Patient Portal Discharge page Care Plan Goals: weight loss Health Concerns: morbid obesity Plan of Treatment: No tub baths, sex or returning to work until discussed at first post op appointm ent. No exercise, alcohol, tobacco or illegal drug use. Continue to use incentive spirometer hourly while awake. Walk in home for 5- 10 minutes every 2 hours during the first week. Follow all instructions in the bariatric handbook and call with any questions.Discharge Instructions 1. Please call your doctor or come back to the emergency room should any new symptoms arise. 2. You will receive a courtesy call from [facility] 24-48 hours after discharge. 3. Activity: abstain from alcohol, practice limited stair climbing, no bending, no driving, no exercise, no illicit substances, no lifting, no sex, no tub bath, no work. 4. Diet: continue as discussed with Dr. Godwin. 5. Dressing Change/Wound Care: Your incision is covered by clear bandages and guaze underneath. If the area is tender, you may apply an ice pack for short intervals (no more than 20 minutes on, followed by at least 20 minutes off). Do not apply heat. Do not use creams, lotions, or topical antibiotics unless instructed to do so by your surgeon. These can cause infection or allergic reaction. 6. Call your doctor if: - Your temperature exceeds 101.5 F - You experience excessive pain or swelling - You have an unexpected reaction to medication - You have excessive bleeding - You experience continued vomiting/nausea - Your incision begins to separate - Your incision shows signs of infection such as increased redness, swelling, excessive pain, heat, or drainage (light blood or clear fluid is normal) 7. General instructions: No lifting greater than 5 lbs for the next 4 weeks[address] within 24 hours of taking narcotic pain medications. If you do not move your bowels in the next 2 days, please take milk of magnesia over the counter. Please follow the post op diet and do not advance your diet until you are seen in the office in about 2 weeks. Please walk around your home every hour or two to prevent blood clots from forming in your legs. You do not need to wake from sleeping to walk. Please sleep in a bed or couch to prevent kinking at the hips and knees. Please take your incentive spirometer (your lung bunch breaker) home with you and use it for the next few days to prevent pneumonias. You may shower, no hot tubs, baths or swimming pools. Please call the office with any questions or concerns such as increasing abdominal pain, fever, chills, shortness of breath, chest pain, leg pain or swelling, or redness or drainage from your incisions. Please stay on stage 3 diet which includes sugar free clear liquids such as ice pops and jello and broth and crystal light. Avoid all carbonation. Please drink 3 protein shakes with at least 25-30 grams of protein daily or 3 of the Celebrate 4:1 shakes which can be purchased in our office. The Celebrate shakes have all of the bariatric vitamins you need if you consume these shakes. If you are drinking other protein shakes, you will need to purchase the Celebrate multivitamins and calcium that we provide in the office (they will provide all the vitamins you need). Please make sure you are consuming at least 40-60 ounces of water in addition to your 3 protein shakes daily. Do not hesitate to contact the office with any questions at . The patient's medical history has been reviewed and they are considered low risk for post op DVT and therefore DVT prophylaxis is not considered necessary. Travel after surgery was reviewed. The patient has not disclosed any travel plans during the first 30 days after surgery and they have been advised that within the first 30 days after surgery any bus, plane, train or car travel over 2 hours in duration is contraindicated due to the possibility of developing blood clots from immobility. Any travel, needs to include periods of ambulation of 10 minutes in duration every 2 hours.? The patient was instructed to discuss any plans for travel during this period with their bariatric surgeon. Assessment: stable. s/p laparoscopic sleeve gastrectomy
[2021-08-29] MEDS: Famotidine/PF 20 MG/2 ML VIAL IVPUSH ×2 (13:19→20:19)
[2021-08-29 13:41] LABS: Hematocrit 38.7 % (37.0-47.0); Hemoglobin 12.4 g/dl (12.0-16.0)
[2021-08-29 13:44] LABS: Anion Gap 16 (12-20); Blood Urea Nitrogen 10 mg/dL (9-16); Carbon Dioxide 19 mmol/L (22-29); Chloride 105 mmol/L (96-108); Creatinine Clr Calc Pharmacy 149.6; Estimated Glomerular Filt Rate > 60; Glucose Random 100 mg/dL (60-115); Potassium 4.1 mmol/L (3.3-5.1); Sodium 136 mmol/L (135-145)
[2021-08-29] MEDS: Metoclopramide HCl 10 MG/2 ML VIAL IVPUSH (15:38)
[2021-08-29] MEDS: ceFAZolin Sodium/Dextrose,Iso 2 GM/50 ML PIGGYBACK IV (16:22)
[2021-08-29] MEDS: ondansetron HCL 4 MG/2 ML VIAL IVPUSH ×2 (17:02→23:34)
[2021-08-29] MEDS: 0.9 % Sodium Chloride Flush 3 ML SYRINGE IVFLUSH (20:19)
[2021-08-30 03:37] VITALS: PULSE 50; RESP 16; TEMP 36.4; O2SAT 95
[2021-08-30 06:30] LABS: MANUAL DIFF FLAG NO
[2021-08-30 06:47] LABS: Basophils Percent Auto 0.1 % (0-2); Hematocrit 35.9 % (37.0-47.0); Hemoglobin 11.6 g/dl (12.0-16.0); Imm Gran Abs Auto 0.03 X10*3/uL (0.00-0.03); Imm Gran Pct Auto 0.4 % (0.0-0.4); Lymphocytes Absolute Auto 1.4 X10*3/uL (1.2-4.9); Lymphocytes Percent Auto 16.4 % (20-40); Mean Corpuscular HGB Conc 32.3 g/dl (31.0-35.0); Mean Corpuscular Hemoglobin 28.8 pg (27.0-33.0); Mean Corpuscular Volume 89.1 fL (80.0-98.0); Mean Platelet Volume 10.8 fL (9.4-12.3); Monocytes Absolute Auto 0.5 X10*3/uL (0.1-1.2); Monocytes Percent Auto 5.6 % (2-11); Neutrophils Absolute Auto 6.4 x10*3/uL (2.0-8.3); Neutrophils Percent Auto 77.5 % (45-73); Platelet Count 246 X10*3/uL (160-400); Red Blood Count 4.03 X10*6/uL (4.20-5.50); Red Cell Distribution Width 13.5 % (11.0-16.0); White Blood Count 8.3 X10*3/uL (4.8-10.8)
[2021-08-30 06:55] LABS: Anion Gap 13 (12-20); Blood Urea Nitrogen 7 mg/dL (9-16); Calcium 9.2 mg/dL (8.4-10.2); Carbon Dioxide 18 mmol/L (22-29); Chloride 108 mmol/L (96-108); Creatinine Clr Calc Pharmacy 153.9; Estimated Glomerular Filt Rate > 60; Glucose Random 91 mg/dL (60-115); Potassium 4.6 mmol/L (3.3-5.1); Sodium 134 mmol/L (135-145)
[2021-08-30 07:14] VITALS: BP 122/76; PULSE 50; RESP 18; TEMP 36.6; O2SAT 98
[2021-08-30] MEDS: ondansetron HCL 4 MG/2 ML VIAL IVPUSH (09:28)
[2021-08-30] MEDS: Famotidine/PF 20 MG/2 ML VIAL IVPUSH (09:28)
--- NOTE | 2021-08-30 09:41 | MHC.CM.PN ---
EMR REVIEWED, PT ADMITTED S/P LAP SLEEVE GASTRECTOMY, CM MET W/PT AND PT'S S.O. WHO IS AT BEDSIDE, PT REPORTS SHE LIVES W/GMOTHER, S.O. AND 1YO, IS FULLY INDEPENDENT, NO DME AND NO HOME SERVICES, PT VERIFIES PCP IS FROM [facility] AND DOES NOT RECALL THE NAME, CM SWINE NUTRITIONIST TO VERIFY, PT DENIES HAVING A HCP, PT EDUCATED AND DECLINES TO COMPLETE, PT VERIFIES NOK ON FILE IS CORRECT, PFIZER VACCINE X2. D/C PLAN: HOME TODAY NO SERVICES W/OUPT FOLLOW UP, S.O FOR TRANSPORT
--- NOTE | 2021-08-30 09:49 | HO.POSTANES ---
Post Anesthesia Evaluation Post Anesthesia Evaluation Vital Signs: Vital Signs Temp Pulse Resp BP Pulse Ox 08/30/21 07:14 97.8 F 50 18 122/76 98 08/30/21 03:37 97.6 F 50 16 95 08/29/21 23:19 98.2 F 56 16 132/83 97 Anesthesia: General Endotracheal-GETA Mental Status: Awake Pain Control: Satisfactory Nausea/Vomiting: None Hydration: Adequate Anesthesia-Related Issues: No Anes. Related Issues
[2021-08-30 11:06] VITALS: BP 135/86; PULSE 56; RESP 18; TEMP 36.3; O2SAT 98
== END 2021-08-30 11:45 | disposition home or self-care (01) | DRG 403 ==
LOC: HO.SSSA 12:48 → HO.S3 15:42
PROVIDERS: Nurse Practitioner; Physician Assistant Surgical; Admitting Provider Surgery; Visit Provider Surgery
PROC: 0DB64Z3 Excision of Stomach, Percutaneous Endoscopic Approach, Vertical (ICD-10-PCS; CPT 43845; principal; 2021-08-29 10:10)
DX: E66.01 Morbid (severe) obesity due to excess calories (principal); K74.00 Hepatic fibrosis, unspecified; F41.9 Anxiety disorder, unspecified; M25.569 Pain in unspecified knee; Z20.822 Contact with and (suspected) exposure to COVID-19; Z68.41 Body mass index [BMI] 40.0-44.9, adult; Z86.16 Personal history of COVID-19; Z79.899 Other long term (current) drug therapy
CPT/HCPCS: 36415; 80048; 80053; 80061; 81025; 83036; 83525; 84443; 85014; 85018; 85025; 85610; 85730; 86140; 86850; 86900; 86901; 87635; 88307; 88342; 99024; A4649; C9399; J0131; J0690; J1100; J1170; J1200; J2250; J2405; J2550; J2765; J3010

== ENCOUNTER → 2021-09-05 12:49 | Outpatient (BNVA) | payer MEDICAID, SELFPAY | PROVIDERS: PCP General Practice; Referring Provider General Practice; Visit Provider Physician Assistant Surgical | DX: Z48.815 Encounter for surgical aftercare following surgery on the digestive system (principal); Z90.3 Acquired absence of stomach [part of]; Z98.84 Bariatric surgery status | CPT/HCPCS: 99212 ==

== ENCOUNTER → 2021-09-13 12:05 | Outpatient (BNVA) | payer MEDICAID, SELFPAY | PROVIDERS: PCP General Practice; Visit Provider Dietitian, Registered | DX: E66.9 Obesity, unspecified (principal); Z68.37 Body mass index [BMI] 37.0-37.9, adult | CPT/HCPCS: 97803 ==

== ENCOUNTER → 2021-09-17 11:16 | Outpatient (BNVA) | payer MEDICAID, SELFPAY | PROVIDERS: PCP General Practice; Referring Provider Surgery; Visit Provider Dietitian, Registered | DX: E66.9 Obesity, unspecified (principal); Z68.37 Body mass index [BMI] 37.0-37.9, adult | CPT/HCPCS: 97803 ==

== ENCOUNTER → 2021-10-04 09:01 | Outpatient (BNVA) | payer MEDICAID, SELFPAY | PROVIDERS: PCP General Practice; Visit Provider Dietitian, Registered | DX: E66.9 Obesity, unspecified (principal); Z98.84 Bariatric surgery status; Z71.3 Dietary counseling and surveillance | CPT/HCPCS: 97803 ==

== ENCOUNTER → 2021-10-18 11:35 | Outpatient (BNVA) | payer MEDICAID, SELFPAY | PROVIDERS: PCP General Practice; Referring Provider Surgery; Visit Provider Dietitian, Registered | DX: E66.9 Obesity, unspecified (principal); Z68.35 Body mass index [BMI] 35.0-35.9, adult; Z98.84 Bariatric surgery status; Z71.3 Dietary counseling and surveillance | CPT/HCPCS: 97803 ==

== ENCOUNTER → 2021-10-24 11:14 | Outpatient (BNVA) | payer MEDICAID, SELFPAY | PROVIDERS: PCP General Practice; Visit Provider Dietitian, Registered | DX: E66.9 Obesity, unspecified (principal); Z68.35 Body mass index [BMI] 35.0-35.9, adult; Z98.84 Bariatric surgery status; Z71.3 Dietary counseling and surveillance | CPT/HCPCS: 97803 ==

== ENCOUNTER → 2021-11-08 11:10 | Outpatient (BNVA) | payer MEDICAID, SELFPAY | PROVIDERS: PCP General Practice; Referring Provider Surgery; Visit Provider Dietitian, Registered | DX: E66.9 Obesity, unspecified (principal); Z68.34 Body mass index [BMI] 34.0-34.9, adult | CPT/HCPCS: 97803 ==

== ENCOUNTER → 2021-11-26 11:17 | Outpatient (BNVA) | payer MEDICAID, SELFPAY | PROVIDERS: PCP General Practice; Referring Provider Surgery; Visit Provider Dietitian, Registered | DX: E66.9 Obesity, unspecified (principal); Z68.33 Body mass index [BMI] 33.0-33.9, adult; Z98.84 Bariatric surgery status; Z71.3 Dietary counseling and surveillance | CPT/HCPCS: 97803 ==

== ENCOUNTER → 2021-12-30 11:08 | Outpatient (BNVA) | payer MEDICAID, SELFPAY | PROVIDERS: PCP General Practice; Referring Provider Surgery; Visit Provider Dietitian, Registered | DX: E66.9 Obesity, unspecified (principal); Z68.31 Body mass index [BMI] 31.0-31.9, adult | CPT/HCPCS: 97803 ==

== ENCOUNTER → 2022-01-28 11:13 | Outpatient (BNVA) | payer MEDICAID, SELFPAY | PROVIDERS: PCP General Practice; Referring Provider Surgery; Visit Provider Dietitian, Registered | DX: E66.9 Obesity, unspecified (principal) | CPT/HCPCS: 97803 ==

== ENCOUNTER → 2022-02-07 14:17 | Outpatient (BNVA) | payer MEDICAID, SELFPAY | PROVIDERS: PCP General Practice; Visit Provider Physician Assistant Surgical | DX: E66.3 Overweight (principal); Z90.3 Acquired absence of stomach [part of]; Z68.29 Body mass index [BMI] 29.0-29.9, adult | CPT/HCPCS: 99212 ==

== ENCOUNTER → 2022-03-11 10:42 | Outpatient (BNVA) | payer MEDICAID, SELFPAY | PROVIDERS: PCP General Practice; Visit Provider Dietitian, Registered | DX: E66.3 Overweight (principal); Z68.28 Body mass index [BMI] 28.0-28.9, adult | CPT/HCPCS: 97803 ==

== ENCOUNTER → 2022-04-24 10:46 | Outpatient (BNVA) | payer MEDICAID, SELFPAY | PROVIDERS: PCP General Practice; Visit Provider Dietitian, Registered | DX: E66.3 Overweight (principal); Z68.27 Body mass index [BMI] 27.0-27.9, adult; Z98.84 Bariatric surgery status; Z71.3 Dietary counseling and surveillance | CPT/HCPCS: 97803 ==

== ENCOUNTER → 2022-06-20 10:39 | Outpatient (BNVA) | payer MEDICAID, SELFPAY | PROVIDERS: PCP General Practice; Visit Provider Dietitian, Registered | DX: E66.9 Obesity, unspecified (principal); Z90.3 Acquired absence of stomach [part of]; Z68.26 Body mass index [BMI] 26.0-26.9, adult | CPT/HCPCS: 97803 ==

== ENCOUNTER 2022-06-26 13:44 | Outpatient (REF) | payer MEDICAID, SELFPAY ==
--- NOTE | ~2022-06-26 | MM_ITS ---
EXAMINATION: MM SCREENING DIGITAL BREAST TOMOSYNTHESIS, BILATERAL CLINICAL INFORMATION: Screening. Asymptomatic. Family history breast cancer, mother. Intentional weight loss/bariatrics. The lifetime risk of breast cancer based on the Tyrer-Cuzick Model is 28%. COMPARISON: Mammography: 06/20/2021, 11/18/2018 (baseline). TECHNIQUE: Digital breast tomosynthesis is performed in both the craniocaudal and mediolateral oblique views along with computer-aided detection (CAD). Synthesized 2D images are generated from the tomosynthesis. FINDINGS: There are scattered areas of fibroglandular density (ACR BI-RADS breast composition Category b). The breasts are symmetrically decreased in overall size with corresponding symmetric increase in breast tissue density, consistent with the intentional weight loss. Right MLO view has 0.8 cm rounded asymmetric density retroareolar region, central outer location on tomography. No definite CC correlate. Patient will be recalled for additional imaging. Otherwise, the bilateral breasts show no significant changes from prior studies. There is no architectural abnormality or abnormal calcifications. The axilla are unremarkable. The skin contours are smooth. MM/MM tomosynthesis screening BI IMPRESSION: -Symmetrical decreased breast size with corresponding symmetric increase in breast tissue density, consistent with the intentional weight loss. -Asymmetric density retroareolar right breast on MLO tomography, possibly summation artifact. -Left breast are unremarkable. ASSESSMENT: BI-RADS 0: Incomplete - Need Additional Imaging Evaluation RECOMMENDATION: 1. Additional views right breast (spot MLO, spot CC). 2. Targeted ultrasound if warranted after review of the additional views. 3. Radiology department staff will contact the patient for additional imaging. This patient's information was entered into a reminder system with a target due date for their next mammogram.
== END 2022-06-26 13:45 | disposition home or self-care (01) ==
LOC: HO.MAMMO 13:44
PROVIDERS: Visit Provider General Practice
DX: Z12.31 Encounter for screening mammogram for malignant neoplasm of breast (principal)
CPT/HCPCS: 77063; 77067

== ENCOUNTER 2023-12-10 15:23 | Emergency (ER) | payer MEDICAID, SELFPAY ==
--- NOTE | ~2023-12-10 | CT_ITS ---
EXAMINATION: CT ABDOMEN AND PELVIS WITHOUT CONTRAST CLINICAL INFORMATION: Left upper quadrant abdominal pain COMPARISON: None available. TECHNIQUE: Multidetector volumetric imaging was performed from the superior aspect of the liver through the pubic symphysis. Sagittal and coronal reformatted images were obtained on the technologist's workstation. This CT examination was performed using dose optimization techniques as appropriate, variously including the following: *Automated exposure control *Adjustment of mA and/or kV according to patient size (this includes techniques or standardized protocols for targeted exams where dose is matched to indication/reason for exam; i.e. extremities or head) *Use of iterative reconstruction technique DLP: 557 mGy-cm FINDINGS: LUNG BASES: The visualized lung bases are unremarkable. LIVER, GALLBLADDER, AND BILIARY TREE: The liver is normal in size, shape, and attenuation. No focal hepatic lesion or biliary ductal dilatation is present. The gallbladder is unremarkable with no evidence of radiopaque gallstones, gallbladder wall thickening, or obvious pericholecystic inflammatory changes. PANCREAS: Unremarkable. SPLEEN: Unremarkable. ADRENAL GLANDS: Unremarkable. KIDNEYS AND URETERS: The kidneys are normal in size, shape, and attenuation. No hydronephrosis, hydroureter, or calculi seen. No perinephric stranding. BLADDER: Unremarkable. GASTROINTESTINAL TRACT: Postsurgical changes along the greater curvature of the stomach. No focal wall thickening. The small and large bowel are unremarkable. The appendix is not visualized. ABDOMINAL WALL: No significant hernia is appreciated. LYMPH NODES: Normal. VASCULAR: Unremarkable. PELVIC VISCERA: The uterus and adnexa are unremarkable. OSSEOUS STRUCTURES: Unremarkable. CT/CT abdomen pelvis wo IV con IMPRESSION: No acute process. Postsurgical changes in the stomach. Electronically signed by: Fish Summers MD 12/10/2023 09:07 PM EDT
[2023-12-10 15:35] VITALS: BP 116/81; PULSE 65; RESP 16; TEMP 37.5; O2SAT 100; BMI 29.6
--- NOTE | 2023-12-10 15:35 | ED_ITS ---
HPI - Abdominal Pain General Chief Complaint: Abdominal Pain Stated Complaint: left side abd pain Time Seen by Provider: 12/10/23 21:09 Source: patient Mode of arrival: ambulatory Limitations: no limitations History of Present Illness ED Provider: laura SEBASTIAN narrative: Patient is status post gastric sleeve surgery 2021 comes here for pain in LUQ and epigastric area after eating food been comes within half an hour of eating food which is sharp in character no nausea no vomiting no melena no history of ulcers in the past Related Data Home Medications ?Medication ?Instructions ?Recorded ?Confirmed multivitamin 1 tab PO DAILY 02/07/22 02/07/22 Previous Rx's ?Medication ?Instructions ?Recorded omeprazole 40 mg capsule,delayed 40 mg PO DAILY #30 caps 12/10/23 release Allergies Allergy/AdvReac Type Severity Reaction Status Date / Time No Known Allergies Allergy Verified 12/10/23 15:37 Review of Systems Review of Systems Yes all other systems are reviewed and are negative PMFSH Past Medical History Medical History Liver fibrosis COVID-19 vaccine series completed History of COVID-19 Knee pain Anxiety Morbid obesity Surgical History Status post sleeve gastrectomy No pertinent past surgical history Family History Family History Mother No problems noted. Father No problems noted. Brother Migraines Brother Asthma Social History Social History Are you a primary child care coordinator to a significant other at home: No Do you presently have visiting nurse or other home services: No Alcohol intake: current Alcohol intake frequency: holidays/special occasions only Comment: sore Patient Tobacco Use Status: Never used Tobacco Substance Use Type: Marijuana Advance Directives: No Advance Directives Information Provided: No service: No Current occupational status: employed Physical Exam ED Vital Signs: Vital Signs - 24 hr 12/10/23 15:35 12/10/23 21:16 Temperature 99.5 F 98.3 F Pulse Rate 65 60 Respiratory Rate 16 16 Blood Pressure 116/81 125/81 Pulse Oximetry 100 98 Oxygen Delivery Method Room Air Room Air BMI result Body Mass Index 29.6 Appearance: Alert. Oriented X3. No acute distress. Eyes: No pallor or icterus ENT: Pharynx normal. Oral Mucosa moist Neck: Normal inspection. Neck supple. CVS: Normal heart rate and rhythm. Pulses normal. Respiratory: No respiratory distress. Equal air entry bilateral, Abdomen: Soft and mild epigastric tenderness Bowel sounds are present, no mass palpable, no CVA tenderness Skin: Skin warm and dry. Normal skin color. Normal skin turgor. Extremities: No lower extremity edema. No calf tenderness Neuro: Oriented X 3. Course Course Course Narrative: This is a Rapid Medical Examination (RME) performed by Berry Spain PA-C in triage. Full HPI, ROS, assessment and treatment plan per primary provider in the Main ED. 33 yo hx of obesity s/p gastric sleeve in 2021 here w/ postprandial LUQ pain x1 wk. pain worse w/ standing up, improves w/ walking around. +assoc nauea. no vomiting, diarrhea. called bariatric surgeon, advised to come to the ED. no urinary sx, fever, chills. + abd soft, nd, nt. well appearing. no cvat. Plan: labs, ct Medical Decision Making Medical Decision Making MDM Narrative: Patient with upper abdominal pain status post gastric sleeve surgery about [address] workup negative CT scan negative for cholelithiasis likely patient has gastritis advised to follow with bariatric surgeon will prescribe Prilosec for now also advised to take Maalox Lab Data [facility] Lab Attestation statement: I reviewed the patient's lab results. 12/10/23 16:20 12/10/23 16:20 Labs: Lab Results 12/10/23 Range/Units 16:20 WBC 7.2 (4.8-10.8) X10*3/uL RBC 4.54 (4.20-5.50) X10*6/uL Hgb 14.0 D (12.0-16.0) g/dl Hct 41.6 (37.0-47.0) % MCV 91.6 (80.0-98.0) fL MCH 30.8 (27.0-33.0) pg MCHC 33.7 (31.0-35.0) g/dl RDW 12.2 (11.0-16.0) % Plt Count 221 (160-400) X10*3/uL MPV 9.0 L (9.4-12.3) fL Immature Gran % (Auto) 0.3 (0.0-0.4) % Neut % (Auto) 59.3 (45-73) % Lymph % (Auto) 33.1 (20-40) % Lawrence % (Auto) 5.8 (2-11) % Eos % (Auto) 1.1 (0-4) % Baso % (Auto) 0.4 (0-2) % Lymph # (Auto) 2.4 (1.2-4.9) X10*3/uL Lawrence # (Auto) 0.4 (0.1-1.2) X10*3/uL Eos # (Auto) 0.1 (0.0-0.4) X10*3/uL Baso # (Auto) 0.0 (0.0-0.2) X10*3/uL Abs Immat Gran (auto) 0.02 (0.00-0.03) X10*3/uL Absolute Neuts (auto) 4.3 (2.0-8.3) x10*3/uL Absolute Nucleated RBC 0.000 (0.0-0.012) X10*3/uL Nucleated RBC % (auto) 0.0 (0.0-0.2) /100WBC Sodium 138 (135-145) mmol/L Potassium 4.2 (3.3-5.1) mmol/L Chloride 105 (96-108) mmol/L Carbon Dioxide 24 (22-29) mmol/L Anion Gap 13 (12-20) BUN 15 (9-16) mg/dL Creatinine 0.78 (0.5-1.4) mg/dL Estim Creat Clear Calc 113.5 Estimated GFR > 60 Random Glucose 80 (60-115) mg/dL Calcium 9.8 D (8.4-10.2) mg/dL Magnesium 2.2 (1.6-2.6) mg/dL Total Bilirubin 0.8 (0.0-1.0) mg/dL AST 18 (5-31) U/L ALT 13 (0-31) U/L Alkaline Phosphatase 64 (39-117) U/L Total Protein 8.2 H (6.5-8.0) g/dL Albumin 4.5 (3.5-5.0) g/dL Lipase 33 (8-78) U/L Beta HCG, Quant < 2 mIU/mL Independent Interpretation I performed an independent interpretation of an: CT Scan Interpretation: No acute finding Radiology Impression Discussion of test interpretation with radiology: I have reviewed the radiologist's reading. Discharge Plan Discharge Clinical Impression: Abdominal pain Patient Disposition: Home, Self-Care Instructions: Abdominal Pain (ED) Additional Instructions: Likely you might have gastritis Avoid fried food Start taking Prilosec daily Follow up with your bariatric surgeon Prescriptions: New omeprazole 40 mg capsule,delayed release(DR/EC) 40 mg PO DAILY Qty: 30 0RF No Action multivitamin Tablet 1 tab PO DAILY Print Language: St Helenian
[2023-12-10 16:24] LABS: MANUAL DIFF FLAG NO
[2023-12-10 16:26] LABS: Basophils Percent Auto 0.4 % (0-2); Eosinophils Absolute Auto 0.1 X10*3/uL (0.0-0.4); Eosinophils Percent Auto 1.1 % (0-4); Hematocrit 41.6 % (37.0-47.0); Imm Gran Abs Auto 0.02 X10*3/uL (0.00-0.03); Imm Gran Pct Auto 0.3 % (0.0-0.4); Lymphocytes Absolute Auto 2.4 X10*3/uL (1.2-4.9); Lymphocytes Percent Auto 33.1 % (20-40); Mean Corpuscular HGB Conc 33.7 g/dl (31.0-35.0); Mean Corpuscular Hemoglobin 30.8 pg (27.0-33.0); Mean Corpuscular Volume 91.6 fL (80.0-98.0); Monocytes Absolute Auto 0.4 X10*3/uL (0.1-1.2); Monocytes Percent Auto 5.8 % (2-11); Neutrophils Absolute Auto 4.3 x10*3/uL (2.0-8.3); Neutrophils Percent Auto 59.3 % (45-73); Platelet Count 221 X10*3/uL (160-400); Red Blood Count 4.54 X10*6/uL (4.20-5.50); Red Cell Distribution Width 12.2 % (11.0-16.0); White Blood Count 7.2 X10*3/uL (4.8-10.8)
[2023-12-10 16:41] LABS: Alanine Aminotransferase 13 U/L (0-31); Albumin Level 4.5 g/dL (3.5-5.0); Alkaline Phosphatase 64 U/L (39-117); Anion Gap 13 (12-20); Aspartate Amino Transferase 18 U/L (5-31); Bilirubin Total 0.8 mg/dL (0.0-1.0); Blood Urea Nitrogen 15 mg/dL (9-16); Calcium 9.8 mg/dL (8.4-10.2); Carbon Dioxide 24 mmol/L (22-29); Chloride 105 mmol/L (96-108); Creatinine Clr Calc Pharmacy 113.5; Estimated Glomerular Filt Rate > 60; Glucose Random 80 mg/dL (60-115); Lipase 33 U/L (8-78); Magnesium 2.2 mg/dL (1.6-2.6); Potassium 4.2 mmol/L (3.3-5.1); Sodium 138 mmol/L (135-145); Total Protein 8.2 g/dL (6.5-8.0)
[2023-12-10 17:39] LABS: HCG Quantitative < 2 mIU/mL
[2023-12-10 21:16] VITALS: BP 125/81; PULSE 60; RESP 16; TEMP 36.8; O2SAT 98
[2023-12-10 21:35] LABS: Appearance Urine Clear; Color Urine Yellow; Glucose Urine UA Negative (Negative); Leukocyte Esterase Urine Moderate (2+) (Negative); Nitrite Urine Negative (Negative); PH 5.5 (5.0-9.0); Specific Gravity - Urine <= 1.005 (1.005-1.025); UMIC TRIGGER UACC YES; Urine Blood Negative (Negative); Urine Ketones 15 mg/dL (Negative); Urine Protein Negative (Neg-Trace)
[2023-12-10] MEDS: Omeprazole 40 MG CAPSULE.DR PO (21:46)
[2023-12-10] MEDS: Magnesium Hydrox/Alum Hydrox 30 ML ORAL.SUSP PO (21:46)
[2023-12-10 21:51] VITALS: BP 125/81; PULSE 60; RESP 16; TEMP 36.8; O2SAT 98
[2023-12-10 22:04] LABS: Bacteria Urine None Seen (None Seen); Hyaline Casts Urine 0-2 /LPF (0-2); RBC Urine 0-2 /HPF (0-2); UACC Culture Trigger YES
== END 2023-12-10 21:51 | disposition home or self-care (01) ==
PROVIDERS: Physician Assistant Medical; Emergency Provider Internal Medicine
DX: R10.12 Left upper quadrant pain (principal); Z79.899 Other long term (current) drug therapy
CPT/HCPCS: 36415; 74176; 80053; 81001; 83690; 83735; 84702; 85025; 87086; 99284

== ENCOUNTER 2024-01-29 08:30 | Outpatient (REF) | payer MEDICAID, SELFPAY ==
--- NOTE | ~2024-01-29 | US_ITS ---
EXAMINATION: US COMPLETE ABDOMEN WITH LIVER ELASTOGRAPHY CLINICAL INFORMATION: Upper abdominal pain. COMPARISON: CT abdomen and pelvis 12/10/2023, ultrasound abdomen with elastoplasty dated 08/08/2021. TECHNIQUE: Real-time imaging of the abdominal viscera. Noninvasive ultrasound liver fibrosis assessment is performed using Janet ElastPQ point quantification shear wave elastography (pSWE) with a C5-2 MHz transducer. Multiple elastography samples are obtained. FINDINGS: PANCREAS: . The visualized pancreatic head and body are normal in appearance. The remainder of the pancreas is obscured from visualization by the overlying bowel gas. ABDOMINAL AORTA: The proximal, middle, and distal aortic segments are normal in caliber. INFERIOR VENA CAVA: Visualized portions are normal. LIVER: . The liver demonstrates normal size, contour and echogenicity. No focal lesion or intrahepatic biliary duct dilatation. The right lobe measures 11.0 cm in length. The left lobe measures 10.4 cm in length. Portal flow is towards the liver (hepatopetal). Shear wave liver elastography median stiffness is 1.76 m/s (reference: normal median stiffness is 1.3 m/s or less). IQR/median stiffness to assess sampling precision is 0.18 (reference: good quality data set is IQR/median stiffness of 0.15 or less). GALLBLADDER: The gallbladder is physiologically distended without evidence of stones, sludge, polyps, wall thickening or pericholecystic fluid. COMMON BILE DUCT: Normal in caliber measuring 0.3 cm in diameter. RIGHT KIDNEY: No hydronephrosis. No renal calculi or focal parenchymal lesions. The kidney measures 10.7 cm in maximum dimension. LEFT KIDNEY: No hydronephrosis. No renal calculi or focal parenchymal lesions. The kidney measures 10.4 cm in maximum dimension. SPLEEN: Normal. The spleen measures 9.4 cm in maximum dimension. FREE FLUID: None. US/US abdomen comp w elastography IMPRESSION: 1. No abnormality is seen in the liver. 2. Liver elastography: Measurements are suggestive of compensated advanced chronic liver disease but need further test for confirmation. When compared with prior exam, there is a statistically significant decrease in liver stiffness (decrease at least 10%). REFERENCE: Society of Radiologists in Ultrasound Liver Stiffness Thresholds (2020): LIVER STIFFNESS THRESHOLDS: *Liver Stiffness equal or less than 1.3 m/s: High probability of being normal. *Liver Stiffness less than 1.7 m/s: In the absence of other known clinical signs, rules out compensated advanced chronic liver disease. *Liver Stiffness 1.7-2.1 m/s: Suggestive of compensated advanced chronic liver disease but need further test for confirmation. *Liver Stiffness over 2.1 m/s: Rules in compensated advanced chronic liver disease. *Liver Stiffness over 2.4 m/s: Suggestive of clinically significant portal hypertension. QUALITY OF DATA SET: *IQR/Median value equal or less than 0.15 implies a quality data set. *IQR/Median value over 0.15 implies a poor quality data set. SIGNIFICANT CHANGE FROM PRIOR EXAM: Significant change if liver stiffness measurement is 10% or greater from prior exam. OTHER CONSIDERATIONS: The stage of liver fibrosis may be overestimated in the setting of acute hepatitis, liver inflammation, elevated liver function tests, hepatic vascular congestion, obstructive cholestasis, non-fasting state, and infiltrative diseases such as amyloidosis and lymphoma. In some patients with NAFLD, the liver stiffness thresholds for compensated advanced chronic liver disease may be lower. In causes other than viral hepatitis and NAFLD, liver stiffness thresholds are not well established. Electronically signed by: Jose Magana MD 03/25/2024 10:35 AM [facility]
== END 2024-01-29 08:31 | disposition home or self-care (01) ==
LOC: HO.US 08:30
PROVIDERS: PCP General Practice; Visit Provider Surgery
DX: R10.9 Unspecified abdominal pain (principal)
CPT/HCPCS: 76700; 76981

== ENCOUNTER 2024-05-16 16:32 | Outpatient (REF) | payer MEDICAID, SELFPAY ==
--- OUTSIDE RECORDS SUMMARY | 2024-05-16 19:53 | XMS_ITS | Encounter Summary ---
Author Organization [employer] Address [address] [place] [address] Care Team Providers Care News Correspondent Name Role Phone rBuna Ugarte MD Primary Care Provider Reason for Visit * Reason Onset Date Comments Nurse Triage 05/13/2024 Encounter Details Date Type Department Care Team (Late st Contact Info) Description 05/13/2024 Telephone [facility] MEDICINE [address] [place], [place] [phone] Bruna Ugarte MD [address] [place] [address] Nurse Triage Social History Tobacco Use Types Packs/Day Years Used Date Smoking Tobacco: Never Assessed Comments Unknown Sex and Gender Information Value Date Recorded Sex Assigned at Female 02/17/2022 10:17 AM EDT Legal Sex Female 10:17 AM EDT Gender Identity Female 02/17/2022 10:17 AM EDT Sexual Orientation Straight 02/17/2022 10 :17 AM EDT documented as of this encounter Miscellaneous Notes * Telephone Encounter - Shannan Shabazz RN - 05/13/2024 2:57 PM EST Call returned to Kaci Garcia to triage below. Reports having a lump on right breast x 2 weeks ago. Per pt maternal hx of breast cancer. Per pt denies any redness to skin, rash, dimpling or tenderness. No nipple discharge. No injury to cause trauma to tissue. Pt advised of dispsoition, agrees to sick on site with CNM for breast exam in office. Reviewed home care advise, ER precautions and reasons to call back. Protocol Used: Breast Symptoms (Adult) Protocol-Based Disposition: See in Office or Video Visit within 3 Days Future Appointments Date Time Provider Department Center 05/16/2024 1:00 PM Shamika Lopez CNM MEDICINE [facility] 07/12/2024 10:30 AM Bruna Ugarte MD MEDICINE [facility] Insurance verified as active per Real Time Eligibility in Epic. Positive Triage Question: * Breast lump * All higher-acuity triage questions were negative Care Advice Discussed: * Breast Self-Exam * Reasons To Call Back - Nipple discharge occurs - Change in appearance of breast - You have more questions - You become worse * Telephone Encounter - Heriberto Ochoa - 05/13/2024 1:52 PM EST Symptom: Breast Symptoms Outcome: Schedule an appointment to be seen within 24 hours Reason: Caller denied all higher acuity questions The caller accepted this outcome. documented in this encounter Plan of Treatment Upcoming Encounters Date Type Department Care Team (Late st Contact Info) Description 07/12/2024 10:30 AM EDT Office Visit [facility] MEDICINE [address] [place] [id number] Bruna Ugarte MD [address] [place] [phone] documented as of this encounter Visit Diagnoses Not on filedocumented in this encounter Care Teams News Correspondent Relationship Specialty Start Date End Date Bruna Ugarte MD [address] [place] [id number] PCP - General Family Medicine 12/12/20 documented as of this encounter
--- OUTSIDE RECORDS SUMMARY | 2024-05-16 19:53 | XMS_ITS | Encounter Summary ---
Author Organization [employer] Address [address] [place] [address] [address] [place] [address] Care Team Providers Care Profile Shaper Operator Name Role Phone Bruna Ugarte MD Primary Care Provider [phone] Reason for Referral * Imaging (STAT) - Authorized Specialty Diagnoses / Procedures Referred By Erika rizvi Referred To Contact Radiology Diagnoses Mass of upper outer quadrant of right breast Procedures BI US Breast Complete Right Shamika Lopez CNM [address] [place] [address] Phone: tel: fax: [facility] Referral ID Status Reason Start Date Expiration Date V isits Requested Visits Authorized [id number] Authorized 05/16/2024 05/16/2025 1 1 * Imaging (STAT) - Authorized Specialty Diagnoses / Procedures Referred By Erika rizvi Referred To Contact Radiology Diagnoses Mass of upper outer quadrant of right breast Procedures BI Mammogram Diagnostic Tomosynthesis Bilateral Shamika Lopez CNM [address] [place] [address] Phone: tel: fax: [facility] Referral ID Status Reason Start Date Expiration Date V isits Requested Visits Authorized [id number] Authorized 05/16/2024 05/16/2025 1 1 Encounter Details Date Type Department Care Team (Late st Contact Info) Description 05/16/2024 1:00 PM EST Office Visit [facility] MEDICINE [address] [place] [address] Shamika Lopez, CESIA [address] [place] [address] Mass of upper outer quadrant of right breast (Primary Dx); Routine cervical smear; Screening examination for venereal disease; Family history of breast cancer in mother Social History Tobacco Use Types Packs/Day Years Used Date Smoking Tobacco: Never Assessed Comments No Sex and Gender Information Value Date Recorded Sex Assigned at Female 02/17/2022 10:17 AM EDT Legal Sex Female 10:17 AM EDT Gender Identity Female 02/17/2022 10:17 AM EDT Sexual Orientation Straight 02/17/2022 10 :17 AM EDT documented as of this encounter Last Filed Vital Signs Vital Sign Reading Time Taken Comments Blood Pressure 137/87 05/16/2024 1:04 PM EST Pulse 87 05/16/2024 1:04 PM EST Temperature 35.9 ??C (96.6 ??F) 05/16/2024 1:04 PM ES T Respiratory Rate 20 05/16/2024 1:04 PM EST Oxygen Saturation 100% 05/16/2024 1:04 PM EST Inhaled Oxygen Concentration - - Weight 78 kg (172 lb) 05/16/2024 1:04 PM EST Height 167.6 cm (5' 6 ) 05/16/2024 1:04 PM EST Body Mass Index 27.76 05/16/2024 1:04 PM EST documented in this encounter Progress Notes * Shamika Lopez CNM - 05/16/2024 1:00 PM EST Subjective Patient ID: Kaci Garcia is a 33 y.o. female who presents for breast mass Notes right breast mass x few weeks, painless. No other breast symptoms. Mammogram BIRADS 1, cat b 11/2018. Breast MRI 12/2018 with artifact. Had significant claustrophobia with MRI, does not want to do that again if at all possible. Mammogram BIRADS 0 in 06/2022. Right MLO view has 0.8 cm rounded asymmetric density retroareolar region, central outer location on tomography. No definite CC correlate. She isn't sure f she had imaging after that. Last visit with me in 2019. SVB 05/2020, daughter is doing well. New AMAB partner, no safety concerns. Occasional vaginal odor, no other urinary/vaginal symptoms. Monthly menses x 6 days, changes pad often for comfort, not soaking in 2 hours or less, no clots. OTC pain medication works for cramps. Not planning in the next year, happy with condoms. Aware of EC, she will call if she wants it. Pap NIL 10/2018. Would like pap and STI testing today. Review of Systems Genitourinary: Negative for dyspareunia, dysuria, frequency, genital sores, hematuria, menstrual problem, pelvic pain, urgency, vaginal bleeding, vaginal discharge and vaginal pain. No abnormal pap, no abnormal bleeding, no breast pain, no nipple discharge Objective BP 137/87 (BP Location: Left arm, Patient Position: Sitting, BP Cuff Size: Adult) Pulse 87 Temp96.6 ??F (35.9 ??C) (Temporal) Resp 20 Ht 5' 6 (1.676 m) Wt 172 lb (78 kg) LMP 05/11/2024 (Exact Date) SpO2 100% BMI 27.76 kg/m?? Physical Exam Constitutional: Appearance: Normal appearance. Chest: Breasts: Right: Mass present. No swelling, bleeding, inverted nipple, nipple discharge, skin change or tenderness. Left: Normal. No swelling, bleeding, inverted nipple, mass, nipple discharge, skin change or tenderness. Comments: 2-3cm irregular mobile mass right breast UOQ, 9-10 o clock Genitourinary: General: Normal vulva. Labia: Right: No rash, tenderness, lesion or injury. Left: No rash, tenderness, lesion or injury. Vagina: Normal. No signs of injury and foreign body. No vaginal discharge, erythema, tenderness, bleeding or lesions. Cervix: No cervical motion tenderness, discharge, friability, lesion, erythema, cervical bleeding or eversion. Uterus: Normal. Not enlarged and not tender. Adnexa: Right adnexa normal and left adnexa normal. Right: No mass, tenderness or fullness. Left: No mass, tenderness or fullness. Lymphadenopathy: Upper Body: Right upper body: No supraclavicular or axillary adenopathy. Left upper body: No supraclavicular or axillary adenopathy. Neurological: Mental Status: She is alert. Psychiatric: Mood and Affect: Mood normal. Behavior: Behavior normal. Assessment/Plan Diagnoses and all orders for this visit: Mass of upper outer quadrant of right breast - BI Mammogram Diagnostic Tomosynthesis Bilateral; Future - BI US Breast Complete Right; Future STAT breast imaging with [facility]. Will contact with results and plan. Routine cervical smear - Pap Smear Cotest today. Repeat 5 years if normal/HPV neg. Will contact with results. Screening examination for venereal disease - STI testing add on (NG, CT, Trich) Pap based STI testing sent today. Will order serum labs to be done at her convenience. Family history of breast cancer in mother STAT breast imaging with [facility]. Will contact with results and plan. documented in this encounter Plan of Treatment Upcoming Encounters Date Type Department Care Team (Late st Contact Info) Description 07/12/2024 10:30 AM EDT Office Visit [facility] MEDICINE [address] [place] [id number] Bruna Ugarte MD [address] [place] [address] Scheduled Orders Name Type Priority Associated Diagnoses Orde r Schedule BI Mammogram Diagnostic Tomosynthesis Bilateral Imaging STAT Mass of upper outer quadrant of right breast Expected: 05/16/2024, Expires: 07/14/2025 BI US Breast Complete Right Imaging STAT Mass of upper outer quadrant of right breast Expected: 05/16/2024, Expires: 07/14/2025 Pap Smear Pathology and Cytology Routine Routine cervical smear Ordered: 05/16/2024 STI testing add on (NG, CT, Trich) Pathology and Cytology Routine Screening examination for venereal disease Ordered: 05/16/2024 Hepatitis B Core Antibody, Total Lab Routine Screening examination for venereal disease Expected: 05/16/2024 (Approximate), Expires: 05/16/2025 Hepatitis B Surface Antibody, Qualitative Lab Routine Screening examination for venereal disease Expected: 05/16/2024 (Approximate), Expires: 05/16/2025 Hepatitis B surface antigen, EIA Lab Routine Screening examination for venereal disease Expected: 05/16/2024 (Approximate), Expires: 05/16/2025 Hepatitis C Antibody with Reflex to HCV, RNA, Quantitative, Real-Time PCR Lab Routine Screening examination for venereal disease Expected: 05/16/2024 (Approximate), Expires: 05/16/2025 HIV-1/2 Antigen and Antibodies, Fourth Generation, with Reflexes Lab Routine Screening examination for venereal disease Expected: 05/16/2024 (Approximate), Expires: 05/16/2025 Syphilis Screen Lab Routine Screening examination for venereal disease Expected: 05/16/2024 (Approximate), Expires: 05/16/2025 documented as of this encounter Visit Diagnoses Diagnosis Mass of upper outer quadrant of right breast- Primary Routine cervical smear Screening for malignant neoplasm of the cervix Screening examination for venereal disease Family history of breast cancer in mother Family history of malignant neoplasm of breast documented in this encounter Care Teams Profile Shaper Operator Relationship Specialty Start Date End Date Bruna Ugarte MD [address] [place] [id number] PCP - General Family Medicine 12/12/20 documented as of this encounter
--- OUTSIDE RECORDS SUMMARY | 2024-05-16 19:53 | XMS_ITS | Clinical Summary ---
Author Organization [employer] Address [address] [place] [address] [address] [place] [address] Care Team Providers Care Supervisor Testing Name Role Phone Bruna Ugarte MD Primary Care Provider [phone] Allergies No known active allergies Medications No known medications Encounters Date Type Department Care Team Description 05/16/2024 1:00 PM EST Office Visit [facility] [address] [place] [id number] [phone] Shamika Lopez CNM Mass of upper outer quadrant of right breast (Primary Dx); Routine cervical smear; Screening examination for venereal disease; Family history of breast cancer in mother 05/13/2024 Telephone [facility] [address] [place], [place] [phone] Bruna Ugarte MD Nurse Triage from Last 3 Months Family History Medical History Relation Name Comments Breast cancer Mother Rectal cancer Mother's Brother Relation Name Status Comments Mother Mother's Brother Social History Tobacco Use Types Packs/Day Years Used Date Smoking Tobacco: Never Assessed Comments No Sex and Gender Information Value Date Recorded Sex Assigned at Female 02/17/2022 10:17 AM EDT Legal Sex Female 10:17 AM EDT Gender Identity Female 02/17/2022 10:17 AM EDT Sexual Orientation Straight 02/17/2022 10 :17 AM EDT Last Filed Vital Signs Vital Sign Reading [...] Mass Index 27.76 05/16/2024 1:04 PM EST Plan of Treatment Upcoming Encounters Date Type Department Care Team (Late st Contact Info) Description 07/12/2024 10:30 AM EDT Office Visit [facility] [address] [place] [address] Bruna Ugarte MD [address] [place] [address] Health Maintenance Due Date Last Done Comments Depression Screening 1992 HIV Screening 1992 SDOH Screening 1992 Alcohol/Substance Use Screening 2004 Tobacco Screening 2004 Hepatitis C Screening 2010 Pap Smear 2013 Cervical Cancer Screening 2022 HPV/Cotest 2022 COVID-19 Vaccine ( season) 2023 02/08/2021, 01/18/2021 Influenza Vaccine (#1) 2023 9, 03/27/2017, 01/08/2012, Additional history exists Family Planning (PISQ) 05/16/2025 05/16/2024 Lipid Panel 07/05/2026 07/05/2021, 07/05/2021 DTaP/Tdap/Td Vaccines (8 - Td or Tdap) 04/19/2030 04/19/2020, 03/27/2020, 11/27/2010, Additional history exists Zoster Vaccines (1 of 2) 2042 RSV Patients and Patients Aged 60 years or older (1 - 1-dose 75+ series) 2067 Hepatitis B Vaccines Completed 05/10/1993, 1992, 1992 HIB Vaccines Completed 10/03/1993, 11/0 04/1992, 1992, Additional history exists IPV Vaccines Completed 06/06/1996, 12/20, 1992, Additional history exists Meningococcal Vaccine Aged Out 07/15/2007 No montserrat judd eligible based on patient's age to complete this topic HPV Vaccines Completed 11/23/2009, 09/2008, 07/15/2007 Hepatitis A Vaccines Aged Out No long er eligible based on patient's age to complete this topic Pneumococcal Vaccine: Pediatrics (0 to 5 Years) and At-Risk Patients (6 to 64 Years) Aged Out No longer eligible based on patient's age to complete this topic RSV under 20 months Aged Out No longe r eligible based on patient's age to complete this topic Rotavirus Vaccines Aged Out No longer eligible based on patient's age to complete this topic Procedures Procedure Name Priority Date/Time Associated Diagnosis Comments [facility] LIPID PANEL Routine 07/05/2021 9:29 AM EDT from Last 3 Months or Most Recently Relevant to Health Maintenance Results * (ABNORMAL) LIPID PANEL (07/05/2021 9:29 AM EDT) Cholesterol 134 mg/dL [facility] Comment: Desirable Cholesterol: ?less than 200 mg/dL Borderline High Cholesterol: ??200-239 mg/dL High Cholesterol: ? greater than 239 mg/dL HDL Cholesterol 27 mg/dL [facility] Comment: Desirable HDL: ??greater than 40 mg/dL ?? Note: This HDL assay may give artificially ? low results in patients with liver disease. LDL Cholesterol Calculated 92 mg/dl [facility] Comment: Desirable LDL: ? less than 100 mg/dL Near Optimal/Above Optimal LDL: ??110-129 mg/dL Borderline High LDL: ? 130-159 mg/dL High LDL: ?160-189 mg/dL Very High LDL: ? greater than or equal to ?190 mg/dL Triglycerides 75 mg/dL [facility] Comment: Desirable Triglyceride: ? less than 150 mg/dL Borderline High Triglyceride ??150-199 mg/dL High Triglyceride: ?200-499 mg/dL Very High Triglyceride: ? greater than or equal to ? 5OO mg/dL TSH reflex Free T4 0.94 0.32 - 4.0 uIU/mL [facility] C Reactive Protein 1.80(H) < or = 0.50 mg/dL [facility] Insulin 16 2 - 29 uU/mL [facility] Comment: ??This test was performed using the [place]arn[place] chemiluminescent method. ?? Values obtained from different assay methods cannot be used interchangeably. ??This insulin assay shows a possible cross-reactivity with antibodies generated against insulin (immunoreactive insulin and some patients treated with bovine or porcine insulin). ??Insulin levels may be measured lower in patients with insulin autoimmune syndrome or familial high pro-insulinemia. Alanine Aminotransferase 31 0 - 31 U/L [facility] Albumin Level 3.9 3.5 - 5.0 g/dL [facility] Alkaline Phosphatase 86 39 - 117 U/L [facility] Anion Gap 14 12 - 20 [facility] Aspartate Amino Transferase 25 5 - 31 U/L [facility] Bilirubin Total 0.5 0.0 - 1.0 mg/dL [facility] Blood Urea Nitrogen 10 9 - 16 mg/dL [facility] Calcium 9.4 8.4 - 10.2 mg/dL [facility] Carbon Dioxide 23 22 - 29 mmol/L [facility] Chloride 104 96 - 108 mmol/L [facility] Creatinine, Serum 0.69 0.5 - 1.4 mg/dL [facility] Estimated Glomerular Filt Rate >60 [facility] Comment: NOTE: ??For -[place] individuals, multiply the result ?by 1.210. ?? Chronic Kidney Disease: ??Estimated GFR < 60 mL/min/1.73m2 Severe Kidney Disease: ??Estimated GFR < 15 mL/min/1.73m2 Glucose Random 82 60 - 115 mg/dL [facility] Potassium 4.3 3.3 - 5.1 mmol/L [facility] Sodium 137 135 - 145 mmol/L [facility] Total Protein 7.4 6.5 - 8.0 g/dL [facility] Iron 36 30 - 160 mcg/dL [facility] Percent Iron Saturation 11(L) 15 - 50 % [facility] Total Iron Binding Capacity 329 228 - 428 mcg/dL [facility] Unsaturated Iron Binding 293 ug/dL [facility] Vitamin D 25-OH Total 11.8 >30 ng/mL [facility] Comment: Health Based Reference Values* ?? < 20 ??ng/mL ??Deficient 20-30 ng/mL ??Insufficient > 30 ??ng/mL ??Sufficient ?? *Annemarie CINTRON. N Engl J Med. 2007;[id number] ?? Care must be taken in interpreting Vitamin D results from different laboratories and methodologies. ??Published data demonstrated that results from patients undergoing hemodialysis may show a negative bias when tested with various automated 25-OH vitamin D assays when compared to LC-MS/MS. ?? When testing samples from patients whose predominant form of Vitamin D is Vitamin D2, such as patients receiving Vitamin D2 supplementation, results that are subtherapeutic should be confirmed with another method such as LC-MS/MS. 07/05/2021 9:29 AM EDT us Historical Provider HISTORICAL/NON ORDERABLE LABS Final Result [facility] [address] from Last 3 Months or Most Recently Relevant to Health Maintenance [place] [place] [address] STANDARD Care Teams Supervisor Testing Relationship Specialty Start Date End Date Bruna Ugarte MD [address] [place] [phone] PCP - General Family Medicine 12/12/20
[2024-05-22 01:58] LABS: C. trachomatis RNA TMA Not Detected (Not Detected); N. gonorrhoeae RNA TMA Not Detected (Not Detected); Trichomonas (NAAT) Not Detected (Not Detected)
== END 2024-05-16 16:33 | disposition home or self-care (01) ==
LOC: HO.HHCLNP 16:32
PROVIDERS: Visit Provider Advanced Practice Midwife
DX: Z11.3 Encounter for screening for infections with a predominantly sexual mode of transmission (principal); Z12.4 Encounter for screening for malignant neoplasm of cervix
CPT/HCPCS: 87491; 87591; 87626; 87661; 88175